=== PATIENT | male | born 1945 | race Caucasian/White ===

== ENCOUNTER 2016-10-15 12:26 | Emergency (ER) | payer OTHER ==
[2016-10-15] MEDS ORDERED: NS 1,000 ML IV ONE (13:06)
--- NOTE | 2016-10-15 13:17 | PROVIDER DOCUMENTATION ---
HPI-Syncope/Dizziness <Elaine Schultz - Last Filed: 10/15/16 14:52> - General Source: patient, family - History of Present Illness-Syncope/Dizzy Timing: reports: improving Position/Activity at time of episode: reports: standing Symptoms prior to episode: reports: lightheaded, nausea/vomiting. denies: headache, visual disturbance, chest pain, racing heart, abdominal pain, back pain, confusion, injury, recent head trauma, rapid heart beat Context: reports: almost passed out Loss of Consciousness: no loss of consciousness Recently Seen Here or By Another Healthcare Provider: No <Liv Knight - Last Filed: 10/15/16 15:03> - General Chief Complaint: Dizziness Stated Complaint: NAUSEA,WEAKNESS,NEAR SYNCOPE Time Seen by Provider: 10/15/16 12:49 Allergies/Adverse Reactions: Patient Allergies Allergy/AdvReac Type Severity Reaction Status Date / Time cephalexin [Cephalexin] Allergy Intermediate RASH Verified 09/19/14 19:47 piperacillin sodium * Allergy Intermediate RASH Verified 09/19/14 19:47 [From Zosyn] tazobactam sodium * Allergy Intermediate RASH Verified 09/19/14 19:47 [From Zosyn] vancomycin Allergy ITCHING Verified 03/28/16 09:42 Home Medications: Home Medication List Medication Instructions Recorded Confirmed Last Taken Type Aspirin 81 mg PO DAILY 04/21/12 10/15/16 10/15/16 07:00 History 81 MG Lisinopril 2.5 mg PO BID 04/21/12 10/15/16 10/15/16 07:00 History 2.5 MG Metoprolol [Lopressor] 12.5 mg PO BID 04/21/12 10/15/16 10/15/16 07:00 History 12.5 MG Tamsulosin [Flomax] 0.4 mg PO DAILY 04/21/12 10/15/16 10/15/16 07:00 History 0.4 MG ATORVAstatin [Lipitor] 40 mg PO DAILY 09/19/14 10/15/16 10/14/16 19:00 History Finasteride 5 mg PO DAILY 09/19/14 10/15/16 10/15/16 07:00 History 5 MG Multivitamins/Minerals [Centrum 1 each PO DAILY 02/09/15 03/07/17 03/07/17 07: 00 History Silver] 1 EACH Rivaroxaban [Xarelto] 20 mg PO DAILY 09/19/14 10/15/16 10/15/16 07:00 History 20 MG Vit C/E/Zn/Coppr/Lutein/Zeaxan 1 each PO BID 03/28/16 03/29/16 10/15/16 07:00 History [Preservision Areds 2 Softgel] Hydrocodone/APAP 10 mg/325 mg 1 each PO Q6H PRN PRN #30 tablet 03/29/16 Unknown Rx [[id number]] - History of Present Illness-Syncope/Dizzy Nature of Presenting Problem: Presents to er with cc of near syncope and dizziness. Pt reports he felt nauseated this am walked to the commode bent down didn't vomit but stood up and his head started spinning and he became weak. Pt reports he then layed down on his bed and became diaphoretic. Reprots then called his and since then all symptoms have resolved. Reports has hx of bradycardia. Denies cp,v,f,mckinley. (Liv Knight) Review of Systems - Adult - REVIEW OF SYSTEMS - ADULT Constitutional: denies: chills, fever, fatique, weight loss Eyes: reports: no symptoms reported Ears, Nose, Mouth & Throat: denies: ear pain, sinus problem, throat pain Cardiovascular: denies: chest pain, irregular heart rate, orthopnea, syncope Respiratory: denies: cough, shortness of breath, wheezing Gastrointestinal: reports: nausea. denies: abdominal pain, diarrhea, difficulty swallowing, frequent heartburn Genitourinary: denies: dysuria, frequent UTI's Musculoskeletal: denies: bone pain, joint pain, joint swelling, muscle aches Integumentary: denies: hives, hair loss, itching, rash Neurological: reports: dizziness/vertigo, other (near syncope). denies: ataxia , headache/migraines, loss of balance, numbness, paresthesia, syncope, tremors Psychiatric: denies: anxiety, anti-depressant use, alcohol/drug dependence Endocrine: reports: excessive sweating. denies: change in skin pigment, heat intolerance, increased thirst, polyuria Hematologic/Lymphatic: reports: no symptoms reported Allergic/Immunologic: reports: no symptoms reported All Other Systems: Reviewed and Negative <Liv Knight - Last Filed: 10/15/16 15:03> Past History - Adult - PAST MEDICAL HISTORY-ADULT Review of Records: reports: Nursing Assessment Review, Medications Reviewed Major Childhood Illnesses: reports: denies history Cardiovascular: reports: denies history Respiratory: reports: asthma Gastrointestinal: reports: other (rectal cancer) Obstetrical/Gynecological: reports: denies history Genitourinary: reports: denies history Musculoskeletal: reports: denies history Neurological: reports: denies history Endocrine/Immune: reports: denies history Other Conditions: reports: denies history - PRIOR SURGERIES/PROCEDURES Surgical/Procedure History: reports: bowel surgery, other (colostomy) - IMMUNIZATION STATUS Childhood Immunizations: See Nurse Assessment Flu Vaccine: See Nurse Assessment - FAMILY HISTORY Family History: reviewed, not pertinent - SOCIAL HISTORY Smoking: cigarettes, less than 1 pack/day Provider spent 3-5 mins advising pt. on dangers of tobacco.: Discussed manners to quit use, and f/u contacts for add'l counseling. Substance Use: none/never <Liv Knight - Last Filed: 10/15/16 15:03> Physical Exam-General - PHYSICAL EXAM-ADULT Initial Vital Signs Reviewed: Yes - CONSTITUTIONAL General Appearance: appears well, alert, no apparent distress - EYES Eyes: PERRL/EOMI - HEAD, EARS, NOSE, MOUTH & THROAT HENMT: normocephalic/atraumatic, moist mucous membranes, normal ENT inspection, TMs normal, pharynx normal - NECK Neck: non-tender, full range of motion, supple, normal inspection - RESPIRATORY Respiratory: chest non-tender, lungs clear, normal breath sounds, no pleuratic chest pain, no respiratory distress, no accessory muscle use - CARDIOVASCULAR Cardiovascular: no edema, no gallop, no JVD, no murmur, bradycardia - GASTROINTESTINAL (ABDOMEN) Abdominal Exam: soft, no organomegaly, no pulsatile mass, other (colostomy bag left quad) - MUSCULOSKELETAL Back Exam: normal inspection, no CVA tenderness, no vertebral tenderness Extremity: normal range of motion, non-tender, normal gait - SKIN Integumentary: normal color, normal turgor, warm/dry - 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 EKG showed sinus jeremy, but he has h/o it and his EKG has no changes compared to old EKG. HR been in high 50s after ED arrival and repeated EKG showed no changes before d/c home.) <Elaine Schultz - Last Filed: 10/15/16 14:52> - EKG 1 Time of EKG reading by physician:: 12:33 EKG Read and Signed by:: Elaine Schultz EKG Interpretation (*Must complete 3 of following elements*): Abnormal ( possible lae) Rate: 50 Rhythm: sinus jeremy [place]: left QRS: LBB 2 Time of EKG reading by physician:: 14:58 EKG Read and Signed by:: Elaine Schultz EKG Interpretation (*Must complete 3 of following elements*): Abnormal Rate: 55 Rhythm: SINUS JEREMY [place]: left QRS: LBB NE Interval: normal ST Wave: normal - XRAY 1 XRAY: Bilateral XRAY Study: Chest Impression: Normal XRAY Interpretation: nad - CT/MRI 1 CT Study: Head Impression: Normal CT Results: no blood no mass no hemm <Liv Knight - Last Filed: 10/15/16 15:03> - PLAN OF CARE/RESULTS Progress/Plan/Lab Results: Orders Category Date Time Status Cardiac Monitoring DIRECTED Care 10/15/16 13:06 Active Finger Stick Blood Sugar (ED) DIRECTED Care 10/15/16 13:06 Active Saline Loc NOW Care 10/15/16 13:06 Active CHEST-PORTABLE [RAD] Stat Exams 10/15/16 13:07 Ordered HEAD W/O CONTRAST [CT] Stat Exams 10/15/16 13:07 Ordered ALCOHOL BLOOD Stat Lab 10/15/16 13:06 Uncollected CBC WITH ELECTRONIC DIFF [HEME] Stat Lab 10/15/16 13:06 Uncollected CK PROFILE [SP CHEM] Stat Lab 10/15/16 13:06 Uncollected COMPREHENSIVE METABOLIC PANEL [CHEM] Stat Lab 10/15/16 13:06 Uncollected PROTIME WITH INR [COAG] Stat Lab 10/15/16 13:06 Uncollected PTT [COAG] Stat Lab 10/15/16 13:06 Uncollected TROPONIN T Stat Lab 10/15/16 13:06 Uncollected URINALYSIS W/POSS RFLX CULT [URINALYSIS] Stat Lab 10/15/16 13:06 Uncollected 0.9% Sodium Chloride Inj [Ns] 1,000 ml Med 10/15/16 13:06 Active IV 250 mls/hr Pulse Oximetry Stat Oth 10/15/16 13:06 Active EKG [EKG] Stat Ther 10/15/16 13:06 Ordered Vital Signs - 24 hr 10/15/16 12:36 Temperature 97.7 F Pulse Rate 53 L Respiratory 16 Rate Blood Pressure 117/54 O2 Sat by Pulse 100 Oximetry Laboratory Tests 10/15/16 10/15/16 10/15/16 13:23 13:23 13:23 WBC 11.15 H RBC 4.12 L Hgb 13.2 L Hct 39.1 L MCV 94.9 MCH 32.0 H MCHC 33.8 RDW Std Deviation 12.7 Plt Count 236 MPV 10.9 H Immature Gran % (Auto) 0.2 Neut % (Auto) 84.1 H Lymph % (Auto) 6.8 L Barren % (Auto) 7.8 Eos % (Auto) 0.8 Baso % (Auto) 0.3 Immature Gran # (Auto) 0.02 Neut # (Auto) 9.38 H Lymph # (Auto) 0.76 L Barren # (Auto) 0.87 H Eos # (Auto) 0.09 Baso # (Auto) 0.03 PT INR PTT (Actin FS) Sodium 141 Potassium 4.8 Chloride 103 Carbon Dioxide 28 Anion Gap 10 BUN 31 H Creatinine 1.1 Estimated GFR/1.73 m2 > 60 BUN/Creatinine Ratio 28 Glucose 109 H Calculated Osmolality 288 Calcium 9.4 Total Bilirubin 0.24 AST 14 ALT 11 Alkaline Phosphatase 92 Creatine Kinase 72 Troponin T Total Protein 6.3 Albumin 3.9 Globulin 2.4 Albumin/Globulin Ratio 1.6 Urine Source Urine Color Urine Turbidity Urine pH Ur Specific [place] Urine Protein Ur Glucose (Stick) Ur Ketones (Stick) Urine Blood Urine Nitrite Urine Bilirubin Urobilinogen Dipstick Urine Leukocytes Urine WBC (Auto) Urine RBC (Auto) U Epithel Cells (Auto) Urine Bacteria (Auto) Plasma/Serum Ethyl Alc 10/15/16 10/15/16 10/15/16 13:23 13:23 14:00 WBC RBC Hgb Hct MCV MCH MCHC RDW Std Deviation Plt Count MPV Immature Gran % (Auto) Neut % (Auto) Lymph % (Auto) Barren % (Auto) Eos % (Auto) Baso % (Auto) Immature Gran # (Auto) Neut # (Auto) Lymph # (Auto) Barren # (Auto) Eos # (Auto) Baso # (Auto) PT 13.7 H INR 1.29 PTT (Actin FS) 34.5 Sodium Potassium Chloride Carbon Dioxide Anion Gap BUN Creatinine Estimated GFR/1.73 m2 BUN/Creatinine Ratio Glucose Calculated Osmolality Calcium Total Bilirubin AST ALT Alkaline Phosphatase Creatine Kinase Troponin T < 0.010 Total Protein Albumin Globulin Albumin/Globulin Ratio Urine Source CLEAN CATCH Urine Color YELLOW Urine Turbidity CLEAR Urine pH 5.5 Ur Specific [place] 1.018 Urine Protein NEGATIVE Ur Glucose (Stick) NEGATIVE Ur Ketones (Stick) NEGATIVE Urine Blood NEGATIVE Urine Nitrite NEGATIVE Urine Bilirubin NEGATIVE Urobilinogen Dipstick NORMAL Urine Leukocytes NEGATIVE Urine WBC (Auto) <10 Urine RBC (Auto) <10 U Epithel Cells (Auto) <10 Urine Bacteria (Auto) NEGATIVE Plasma/Serum Ethyl Alc (Liv Knight) Departure <Jose Schultzeddie X - Last Filed: 10/15/16 14:52> - Departure Time of Disposition Order: 14:33 Certified Medical Emergency: Emergent <Liv Knight - Last Filed: 10/15/16 15:03> - Departure DIAGNOSIS: Near syncope Disposition: HOME 01 Condition: Stable Additional Instructions: ED Follow Up Instructions: You have been treated by a care provider in the Emergency Department. These instructions are being provided to you so you can have an understanding of how to care for yourself upon discharge. Upon discharge from the Emergency Department, you are responsible for making arrangements for follow-up care by a physician of your choice. Take all prescribed medications as directed. Return to the Emergency Department immediately for any new or worsening symptoms. You may call the Physician Referral phone number at [phone] to obtain a list of Physicians who are taking new patients. Referrals: Sendy Knight MD [Primary Care Provider] - Attestation - Scribe Verification/Attestation Scribe:: Liv Knight Acting as Scribe for:: Elaine Schultz Scribe documention review:: This chart was documented by a scribe and accurately reflects the service the provider performed and the decisions made by the provider. <Liv Knight - Last Filed: 10/15/16 15:03> Physician Attestation - Physician Attestation I, the provider, attest to the following statement:: Elaine Schultz Physician documentation Attestation:: This documentation recorded by the scribe accurately reflects the service I personally performed and the decisions made by me. <Liv Knight - Last Filed: 10/15/16 15:03>
[2016-10-15 13:35] LABS: MANUAL DIFF NEEDED? NO
[2016-10-15 13:39] LABS: BASO% 0.3 % (0.0-0.8); EOS# 0.09 X1000 (0.0-0.7); EOS% 0.8 % (0.0-10.0); HEMATOCRIT 39.1 % (42.0-52.0); HEMOGLOBIN 13.2 g/dL (14.0-18.0); IMM GRAN# 0.02 X1000 (0.0-0.04); IMM GRAN% 0.2 % (0.0-0.5); LYMPH# 0.76 X1000 (1.2-3.4); LYMPH% 6.8 % (20.5-51.1); MCHC 33.8 g/dL (33-37); MCV 94.9 FL (81-99); MONO# 0.87 X1000 (0.11-0.59); MONO% 7.8 % (1.7-9.3); MPV 10.9 FL (7.4-10.4); NEUT% 84.1 % (42.2-75.2); PLT 236 X1000 (130-400); RBC 4.12 XMIL (4.7-6.1)
[2016-10-15 13:52] LABS: INR 1.29; PROTIME 13.7 Seconds (9.2-11.7); PTT 34.5 Seconds (22.0-36.0)
[2016-10-15 13:58] LABS: AGAP 10; ALBUMIN 3.9 g/dL (3.5-5.0); ALKALINE PHOSPHATASE 92 U/L (32-122); BUN 31 mg/dL (8-22); CALCIUM 9.4 mg/dL (8.8-10.2); CHLORIDE 103 mmol/L (98-107); CK PROFILE 72 U/L (24-204); COSMO 288; GOT 14 U/L (10-34); GPT 11 U/L (10-44); POTASSIUM 4.8 mmol/L (3.5-5.1); SODIUM 141 mmol/L (136-145); TCO2 28 mmol/L (25-35); TOTAL BILIRUBIN 0.24 mg/dL (0.20-1.00); TOTAL PROTEIN 6.3 g/dL (6.3-8.3)
--- NOTE | 2016-10-15 14:08 | Diag Imaging Result Document ---
PROCEDURE NAME: HEAD W/O CONTRAST - 10/15/2016 CT BRAIN WITHOUT. DOSE REDUCTION PROTOCOL. FINDINGS: No parenchymal hemorrhage. No epidural or subdural hematoma. No subarachnoid hemorrhage. No hydrocephalus. No mass identified on this noncontrasted exam. No sinus opacification. IMPRESSION: No hemorrhage. Negative brain CT without contrast.
--- NOTE | 2016-10-15 14:19 | Diag Imaging Result Document ---
PROCEDURE NAME: CHEST-PORTABLE - 10/15/2016 PORTABLE UPRIGHT AP CHEST: COMPARISON: 03/18/2016. FINDINGS: The lungs are well expanded. The heart is not enlarged. The vessels are not distended. No pneumonia. No pleural effusions identified. IMPRESSION: Negative chest.
[2016-10-15 14:27] LABS: URINE CULTURE NEEDED? NO; URINE MICRO REVIEW NEEDED? NO; URINE SOURCE CLEAN CATCH
[2016-10-15 14:30] LABS: BILIRUBIN URINE NEGATIVE (NEGATIVE); BLOOD URINE NEGATIVE (NEGATIVE); COLOR YELLOW; GLUCOSE URINE NEGATIVE (NEGATIVE); LEUKOCYTES URINE NEGATIVE (NEGATIVE); NITRITE URINE NEGATIVE (NEGATIVE); PH URINE 5.5; PROTEIN URINE NEGATIVE (NEGATIVE); SP GRAVITY URINE 1.018; TURBIDITY URINE CLEAR (CLEAR); UROBILINOGEN URINE NORMAL (NORMAL)
[2016-10-15 14:31] LABS: UR EPITHELIAL CELLS <10 /HPF (<10); URINE BACTERIA NEGATIVE /HPF; URINE RBC <10 /HPF (<10); URINE WBC <10 /HPF (<10)
[2016-10-15 15:19] VITALS: BP 141/54
--- NOTE | 2016-10-15 15:40 | EKG Report ---
Test Performed on : 10/15/2016 12:33:59 PM Test Reason : AMS Blood Pressure : / mmHG Vent. Rate : 050 BPM Atrial Rate : 050 BPM P-R Int : 186 ms QRS Dur : 156 ms QT Int : 476 ms P-R-T Axes : 076 -47 173 degrees QTc Int : 433 ms Sinus bradycardia. Possible Left atrial enlargement Left axis deviation Left bundle branch block Abnormal ECG When compared with ECG of 28-MAR-2016 10:00, No significant change was found Unconfirmed Result
--- NOTE | 2016-10-16 05:42 | EKG Report ---
Test Performed on : 10/15/2016 2:58:43 PM Test Reason : No Order in [email or web address] Blood Pressure : / mmHG Vent. Rate : 055 BPM Atrial Rate : 055 BPM P-R Int : 190 ms QRS Dur : 154 ms QT Int : 466 ms P-R-T Axes : 060 -58 127 degrees QTc Int : 445 ms Sinus bradycardia. Left axis deviation Left bundle branch block Abnormal ECG No previous ECGs available Unconfirmed Result
== END 2016-10-15 15:23 | disposition home or self-care (01) ==
LOC: ED 12:26
DX: R55 Syncope and collapse (principal); R94.31 Abnormal electrocardiogram [ECG] [EKG]; R42 Dizziness and giddiness; R11.0 Nausea; R53.1 Weakness; R61 Generalized hyperhidrosis; R00.1 Bradycardia, unspecified; F17.210 Nicotine dependence, cigarettes, uncomplicated; Z79.899 Other long term (current) drug therapy; Z79.01 Long term (current) use of anticoagulants; Z79.82 Long term (current) use of aspirin; Z71.6 Tobacco abuse counseling; Z85.048 Personal history of other malignant neoplasm of rectum, rectosigmoid junction, and anus; Z93.3 Colostomy status
CPT/HCPCS: 70450; 71010; 80053; 81001; 82550; 82948; 84484; 85025; 85610; 85730; 93005; G0480; J7030; 80320

== ENCOUNTER 2018-10-22 08:54 | Inpatient (IN) ==
[2018-10-22] MEDS ORDERED: NS 1,000 ML IV ONE ×2 (09:27→11:20)
[2018-10-22 09:34] LABS: BASO# 0.02 X1000 (0.0-0.2); BASO% 0.2 % (0.0-0.8); HEMATOCRIT 45.1 % (42.0-52.0); HEMOGLOBIN 15.2 g/dL (14.0-18.0); IMM GRAN# 0.03 X1000 (0.0-0.04); IMM GRAN% 0.2 % (0.0-0.5); LYMPH# 1.17 X1000 (1.2-3.4); LYMPH% 8.9 % (20.5-51.1); MCH 31.5 PG (27-31); MCHC 33.7 g/dL (33-37); MCV 93.4 FL (81-99); MONO# 1.25 X1000 (0.11-0.59); MONO% 9.5 % (1.7-9.3); NEUT# 10.67 X1000 (1.4-6.5); NEUT% 81.2 % (42.2-75.2); PLT 198 X1000 (130-400); RBC 4.83 XMIL (4.7-6.1); RDW 13.9 % (11.5-14.5); WBC 13.14 X1000 (4.8-10.8)
[2018-10-22 09:59] LABS: ALB/GLOB RATIO 1.4; ALBUMIN 4.3 g/dL (3.5-5.0); CALCIUM 9.8 mg/dL (8.8-10.2); CREATININE 1.9 mg/dL (0.7-1.2); TOTAL BILIRUBIN 0.49 mg/dL (0.20-1.00); TOTAL PROTEIN 7.4 g/dL (6.3-8.3)
--- NOTE | 2018-10-22 10:21 | PROVIDER DOCUMENTATION ---
HPI-Chest Pain - General Chief Complaint: N/V/D Stated Complaint: POST OP COMPLAINT Time Seen by Provider: 10/22/18 10:15 Source: patient, family (INTRAVASC AO VALVE REPLACEMENT [facility] [address] GROSS/AJ. EPISODE A FIB YESTERDAY AT PRIOR TO D/C BUT CONVERTED TO SINUS, GIVEN 1ST DOSE OF AMIOD 200MG AND SENT HOME. REPORT TUMMY ACHE YESTERDAY, THEN NAUSEA/VOMITING, CHILLS WEAKNESS DIZZINESS , UPPER ABD PAIN BUT NO CHEST PAIN THIS MORINGING. HAS BEEN ON XARELTO AND TOOK 1ST DOSE PLAVIX THIS AM. TOOK DOSE AMIOD 200 THIS AM.) Allergies/Adverse Reactions: Patient Allergies Allergy/AdvReac Type Severity Reaction Status Date / Time cephalexin [Cephalexin] Allergy Intermediate RASH Verified 03/25/18 03:54 piperacillin sodium * Allergy Intermediate RASH Verified 03/25/18 03:54 [From Zosyn] tazobactam sodium * Allergy Intermediate RASH Verified 03/25/18 03:54 [From Zosyn] vancomycin Allergy ITCHING Verified 03/25/18 03:54 Home Medications: Home Medication List Medication Instructions Recorded Confirmed Last Taken Type Aspirin 81 mg PO QHS 04/21/12 03/25/18 02/03/18 20:00 History Lisinopril 2.5 mg PO BID 04/21/12 03/25/18 02/04/18 07:00 History Tamsulosin [Flomax] 0.4 mg PO DAILY 04/21/12 03/25/18 02/03/18 18:30 History ATORVAstatin [Lipitor] 40 mg PO QHS 09/19/14 03/25/18 02/03/18 20:00 History Finasteride 5 mg PO QHS 09/19/14 03/25/18 02/03/18 20:00 History Multivitamins/Minerals [Centrum 1 each PO DAILY 09/19/14 03/25/18 02/04/18 07:00 History Silver] Rivaroxaban [Xarelto] 20 mg PO DAILY 09/19/14 03/25/18 02/04/18 07:00 History Rabeprazole [Aciphex] 20 mg PO DAILY 10/28/17 03/25/18 02/04/18 07:00 History Vit C/E/Zn/Coppr/Lutein/Zeaxan 1 each PO BID 10/28/17 03/25/18 02/04/18 07:00 History [Preservision Areds 2 Softgel] Amiodarone [Cordarone] 200 mg PO DAILY 02/05/18 03/25/18 02/04/18 07:00 History Docusate Sodium [Colace] 100 mg PO BID #60 cap 03/27/18 Unknown Rx Review of Systems - Adult - REVIEW OF SYSTEMS - ADULT Constitutional: reports: no symptoms reported. denies: chills Eyes: reports: no symptoms reported Ears, Nose, Mouth & Throat: reports: no symptoms reported Cardiovascular: reports: no symptoms reported Respiratory: reports: no symptoms reported Gastrointestinal: reports: no symptoms reported Genitourinary: reports: no symptoms reported Musculoskeletal: reports: no symptoms reported Integumentary: reports: no symptoms reported Neurological: reports: no symptoms reported Psychiatric: reports: no symptoms reported Endocrine: reports: no symptoms reported Hematologic/Lymphatic: reports: no symptoms reported Allergic/Immunologic: reports: no symptoms reported All Other Systems: Reviewed and Negative Past History - Adult - PAST MEDICAL HISTORY-ADULT Review of Records: reports: Old Records Reviewed, Nursing Assessment Review, Medications Reviewed, Social history reviewed & non-contributory. Major Childhood Illnesses: reports: denies history Cardiovascular: reports: palpitations Respiratory: reports: asthma Gastrointestinal: reports: obstruction, other (rectal cancer) Obstetrical/Gynecological: reports: denies history Genitourinary: reports: denies history Musculoskeletal: reports: denies history Neurological: reports: denies history Endocrine/Immune: reports: denies history Other Conditions: reports: denies history - PRIOR SURGERIES/PROCEDURES Surgical/Procedure History: reports: bowel surgery, other (colostomy) - IMMUNIZATION STATUS Childhood Immunizations: See Nurse Assessment Flu Vaccine: See Nurse Assessment - FAMILY HISTORY Family History: reviewed, not pertinent Physical Exam-General - PHYSICAL EXAM-ADULT Initial Vital Signs Reviewed: Yes - CONSTITUTIONAL General Appearance: mild distress - EYES Eyes: PERRL/EOMI - HEAD, EARS, NOSE, MOUTH & THROAT HENMT: moist mucous membranes - NECK Neck: full range of motion, supple - RESPIRATORY Respiratory: lungs clear, normal breath sounds, no pleuratic chest pain - CARDIOVASCULAR Cardiovascular: tachycardia, irregularly irregular - GASTROINTESTINAL (ABDOMEN) Abdominal Exam: normal bowel sounds, non tender, soft - MUSCULOSKELETAL Extremity: normal range of motion, non-tender, normal gait, normal inspection - SKIN Integumentary: normal color, normal turgor, warm/dry - 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, grossly normal, no motor/sensory deficits - PSYCHIATRIC Psych/Mental Status: normal mood/affect, normal thought content, normal thought process, oriented x 3 - HEART Score HEART Score: History: Moderately Suspicious HEART Score: ECG: Non-Specific Repolarization Disturbance/LBBB/PM HEART Score: Age: > or = 65 Years HEART Score: Risk Factors for Atherosclerotic Disease: 1 or 2 Risk Factors HEART Score: Troponin: < or = Normal Limit Total HEART Score:: 5 Progress - PLAN OF CARE/RESULTS Progress/Plan/Lab Results: Vital Signs - 8 hr 10/22/18 11:00 10/22/18 11:02 10/22/18 11:10 Pulse Rate 47 L 48 L 52 L Respiratory Rate 10 L 11 L 15 Blood Pressure 120/60 O2 Sat by Pulse Oximetry 98 97 98 10/22/18 11:17 10/22/18 11:20 10/22/18 11:30 Pulse Rate 50 L 50 L 49 L Respiratory Rate 9 L 11 L 17 Blood Pressure 123/63 O2 Sat by Pulse Oximetry 98 98 96 10/22/18 11:32 10/22/18 11:40 10/22/18 11:47 Pulse Rate 54 L 50 L 51 L Respiratory Rate 18 9 L 13 Blood Pressure 96/65 132/60 O2 Sat by Pulse Oximetry 98 97 96 10/22/18 11:50 10/22/18 12:00 10/22/18 12:03 Pulse Rate 49 L 58 L 54 L Respiratory Rate 13 18 15 Blood Pressure 125/71 O2 Sat by Pulse Oximetry 98 98 97 10/22/18 12:10 10/22/18 12:17 10/22/18 12:20 Pulse Rate 52 L 56 L 49 L Respiratory Rate 17 22 10 L Blood Pressure 131/64 O2 Sat by Pulse Oximetry 97 97 97 10/22/18 12:30 10/22/18 12:32 10/22/18 12:40 Pulse Rate 55 L 49 L 49 L Respiratory Rate 16 21 12 Blood Pressure 122/63 O2 Sat by Pulse Oximetry 98 97 97 10/22/18 09:02 Influenza Screen - Final Nasopharyngeal Laboratory Results - last 24 hr 10/22/18 10/22/18 09:10 09:10 WBC 13.14 H RBC 4.83 Hgb 15.2 Hct 45.1 MCV 93.4 MCH 31.5 H MCHC 33.7 RDW Std Deviation 13.9 Plt Count 198 MPV 11.0 H Immature Gran % (Auto) 0.2 Neut % (Auto) 81.2 H Lymph % (Auto) 8.9 L [place] % (Auto) 9.5 H Eos % (Auto) 0.0 Baso % (Auto) 0.2 Immature Gran # (Auto) 0.03 Neut # (Auto) 10.67 H Lymph # (Auto) 1.17 L [place] # (Auto) 1.25 H Eos # (Auto) 0.00 Baso # (Auto) 0.02 Sodium 135 L Potassium 5.0 Chloride 101 Carbon Dioxide 24 L Anion Gap 10 BUN 39 H Creatinine 1.9 H Estimated GFR/1.73 m2 35 BUN/Creatinine Ratio 21 Glucose 128 H Calculated Osmolality 281 Calcium 9.8 Total Bilirubin 0.49 AST 24 ALT 18 Alkaline Phosphatase 99 Total Protein 7.4 Albumin 4.3 Globulin 3.1 Albumin/Globulin Ratio 1.4 Amylase 33 Lipase 15 Orders Category Date Time Status Admit - [facility] Routine AdmDCTranf 10/22/18 15:30 Active Activity - Bed Rest with BRP ORDERED Care 10/22/18 15:30 Active Apply Mechanical Device [QM] ORDERED Care 10/22/18 15:30 Active Currently Rec Anticoagulation [QM] ROUTINE Care 10/22/18 15:30 Active DVT/PE Risk Assess/Protocol [QM] ORDERED Care 10/22/18 15:30 Active ED: Orthostatic Vital Signs (E DIRECTED Care 10/22/18 09:27 Completed IV [Saline Loc] NOW Care 10/22/18 09:27 Completed Intake and Output-Strict ORDERED Care 10/22/18 15:30 Active Nursing- Assist w/ IS as order ORDERED Care 10/22/18 15:30 Active Update & Confirm Home Medicati ROUTINE Care 10/22/18 15:30 Active Vital Signs Order Q 4-HR ASSESS Care 10/22/18 15:30 Active Z-Document. for Tele Applied ORDERED Care 10/22/18 15:30 Completed MD [Physician/Provider Consults] Routine Cons 10/22/18 10:27 Ordered Heart Healthy Diet Diet 10/22/18 11:27 Active KUB ABDOMEN [RAD] Routine Exams 10/22/18 15:30 Completed cxr [CHEST-PORTABLE] [RAD] Stat Exams 10/22/18 10:56 Completed AMYLASE [CHEM] Stat Lab 10/22/18 09:10 Completed BASIC METABOLIC PANEL [CHEM] Routine Lab 10/23/18 06:00 Ordered CBC WITH DIFF [HEME] Routine Lab 10/23/18 06:00 Uncollected CBC WITH ELECTRONIC DIFF [HEME] Stat Lab 10/22/18 09:10 Completed COMPREHENSIVE METABOLIC PANEL [CHEM] Stat Lab 10/22/18 09:10 Completed FOLATE Routine Lab 10/22/18 15:30 Uncollected FREE T4 Routine Lab 10/23/18 06:00 Uncollected INFLUENZA SCREEN A/B Stat Lab 10/22/18 09:02 Completed LIPASE [CHEM] Stat Lab 10/22/18 09:10 Completed MAGNESIUM [CHEM] Routine Lab 10/23/18 06:00 Ordered OVA AND PARASITE W/TRICHROME [STOOL] Stat Lab 10/22/18 12:21 Uncollected Stool [C DIFF TOXIN] [STOOL] Routine Lab 10/22/18 11:21 Uncollected Stool [OCCULT BLOOD SCREENING] [STOOL] Routine Lab 10/22/18 11:21 Uncollected TSH Routine Lab 10/23/18 06:00 Uncollected VITAMIN B12 Routine Lab 10/22/18 15:30 Uncollected WBC STOOL [STOOL] Stat Lab 10/22/18 12:21 Uncollected 0.9% Sodium Chloride Inj [Ns] 1,000 ml Med 10/22/18 11:20 Active IV 100 mls/hr 0.9% Sodium Chloride Inj [Ns] 1,000 ml Med 10/22/18 09:27 Discontinued IV 999 mls/hr ATORVAstatin [Lipitor] Med 10/22/18 21:00 Active 40 mg PO QHS Acetaminophen [Tylenol] Med 10/22/18 15:30 Active 650 mg PO Q6H PRN PRN Amiodarone [Cordarone] Med 10/22/18 11:30 Active 200 mg PO DAILY Aspirin Med 10/22/18 11:30 Discontinued 81 mg PO DAILY Clopidogrel [Plavix] Med 10/22/18 12:00 Active 75 mg PO DAILY Ondansetron [Zofran] Med 10/22/18 15:30 Active 4 mg IV Q4H PRN PRN Rivaroxaban [Xarelto] Med 10/22/18 17:00 Active 20 mg PO WSUPPER Incentive Spirometer Routine Oth 10/22/18 15:30 Active Oxygen Device Routine Oth 10/22/18 15:30 Active Telemetry [OM.EQ] Routine Oth 10/22/18 15:30 Active ECHO COMPL W/Contrast Definity Routine Ther 10/22/18 11:29 Completed EKG [EKG] DAILY Ther 10/23/18 06:00 Ordered EKG [EKG] DAILY Ther 10/24/18 06:00 Ordered EKG [EKG] Stat Ther 10/22/18 09:27 Draft Transfer/Admit Order [TRANSFER] Routine Transfer 10/22/18 11:54 Completed Result Diagrams: 10/22/18 09:10 10/22/18 09:10 - REASSESSMENT Reassessment #1 Time Reassessed: 10:19 Status: improving (PRESENTED IN AFIB AT 102-115/MIN AND CONCERTED TO SINUS BRADYARDIA I WATCHED THE MONITOR AT 0943. IMMEDIATELY FELT MUCH BETTER. MOST SXS RESOLVED.PAGING CARDIOLOGY. BERGER REACHED IN HIS CLINIC BUT INSTRUCTED ME TO CALL DR HI, PAGING DR HI.) - CONSULTS/PCP/HOSPITALIST Notification #1 *Consult/PCP/Hospitalist*: DR HI, NUCLEAR TECHNICIAN Time Discussed: 10:24 Consult Disposition: Will see in ED #2 Consult: EVANGELINA: ADMIT TO DR PLEITEZ Time Discussed: 11:55 Consult Disposition: Admit Departure - Departure Date of Disposition Decision: 10/22/18 Time of Disposition Decision: 10:30 DIAGNOSIS: Chest pain, Atrial fibrillation with RVR Disposition: ADMITTED INPATIENT 09 Certified Medical Emergency: Emergent Condition: Fair - Critical Care Note This patient required my direct & personal management of CC.: Yes Total Time (mins): 35 Critical Care Statement: This patient required my direct personal management to treat or rule out processes, the absence of which, could potentiallly result in sudden, clinically significant life or limb threatening deterioration. Attestation - Physician/ NUNO Attestation The physician spent face to face time with patient:: Yes Advanced Practice Provider documentation review:: Supervising physician onsite and consulted in the evaluation and care of this patient. The physician did have a face to face encounter with the patient.
--- NOTE | 2018-10-22 10:32 | EKG Report ---
Test Performed on : 10/22/2018 09:43:51 AM Test Reason : post valve replacement Blood Pressure : / mmHG Vent. Rate : 053 BPM Atrial Rate : 053 BPM P-R Int : 174 ms QRS Dur : 168 ms QT Int : 478 ms P-R-T Axes : 071 -54 136 degrees QTc Int : 448 ms Sinus bradycardia. with premature atrial complexes. Biatrial enlargement Left axis deviation Left bundle branch block Abnormal ECG When compared with ECG of 25-MAR-2018 10:06, premature atrial complexes. are now present Unconfirmed Result
--- NOTE | 2018-10-22 10:36 | ED EKG INTERP ---
This chart was entered by Carmencita Rodríguez Scribe, acting as scribe for Keon Knight MD. EKG Interpretation - EKG Time of EKG reading by physician:: 09:34 EKG Read and Signed by:: Keon Knight EKG Interpretation (*Must complete 3 of following elements*): Abnormal Rate: 98 Rhythm: undetermined rhythm [place]: left (deviation) QRS: LBB AK Interval: normal ST Wave: normal Prior EKG Comparison: changes noted (changed to sinus jeremy rhythm with dr at bedside) - EKG # 2 Time of EKG reading by physician:: 09:43 EKG Read and Signed by:: Keon Knight EKG Interpretation (*Must complete 3 of following elements*): Abnormal Rate: 53 Rhythm: sinus bradycardia with pac [place]: left (deviation) QRS: LBB, other (biatrial enlargement) AK Interval: normal ST Wave: normal Prior EKG Comparison: changes noted Attestation - Physician/ NUNO Attestation Patient care was provided by Advanced Practice Provider:: No The physician spent face to face time with patient:: Yes Advanced Practice Provider documentation review:: Supervising physician onsite and consulted in the evaluation and care of this patient. The physician did have a face to face encounter with the patient. This chart was documented by the indicated scribe, (Carmencita Rodríguez Scribe) and accurately reflects the services I performed and decisions made by me, Keon Knight MD, as attested by the provider's signature.
[2018-10-22] MEDS ORDERED: ASPIRIN PO SCH (11:30)
[2018-10-22] MEDS: CORDARONE PO SCH (11:30)
--- NOTE | 2018-10-22 11:34 | Diag Imaging Result Doc PS360 ---
CHEST-PORTABLE - 10/22/2018 INDICATION: dyspnea, afib COMPARISON: 03/26/2018 FINDINGS: The lungs are normally expanded and clear. Heart size and mediastinal contours are normal. No pneumothorax or pleural effusion. IMPRESSION: Negative exam. Electronically signed by Henrry Nieto 10/22/2018 11:31 AM
[2018-10-22] MEDS: PLAVIX PO SCH (12:00)
--- NOTE | 2018-10-22 12:01 | CARDIOLOGY CONSULTATION ---
DATE: 10/22/2018 HISTORY OF PRESENT ILLNESS: Mr. David Carr is a 73-year-old, gentleman who underwent TAVR on this Friday. Was in the hospital. Prior to discharge, he was noted to be having abnormal heart rhythm. Was started on amiodarone. Subsequently discharged home. After he went home, the patient had noticed, last night, severe abdominal squeezing sensation and discomfort, had diarrhea. He has a colostomy bag. There was no blood but it was diarrhea. He felt dizzy. Came to the emergency room here. At the emergency room, his rhythm revealed atrial flutter. His is back in sinus rhythm, intermittently into atrial flutter and normal sinus rhythm. He denies any chest pain. His main symptoms were a queasy sensation in his abdomen with some nausea as well. REVIEW OF SYSTEM: A 14 point review of systems was done. GI System: As above. In addition, there is no hematemesis or melena. Central Nervous System: No focal weakness to suggest a CVA or TIA. Genitourinary System: There is no dysuria or hematuria. Respiratory System: There is no history of cough, expectoration, or hemoptysis. There is no history of fevers or chills. PAST MEDICAL HISTORY: 1. Status post TAVR at [facility] on 10/20/2018. 2. History of paroxysmal atrial fibrillation. 3. Atrial flutter. 4. Anticoagulation therapy. 5. Hyperlipidemia. 6. Carotid bruit. 7. Renal insufficiency. 8. Colon surgery with end-colostomy secondary to colorectal surgery. 9. In the past, he has had small bowel obstruction. HOME MEDICATIONS: Include amiodarone 200 mg daily, Xarelto 20 mg a day, finasteride 5 mg, atorvastatin 40, Flomax 0.4 mg, aspirin 81 mg a day, Centrum Silver, Colace. ALLERGIES: Allergic to vancomycin, Zosyn, cephalexin. SOCIAL HISTORY: The patient does not smoke. He dips tobacco. There is no history of alcohol abuse. PHYSICAL EXAMINATION: Vital Signs: Blood pressure 129/61, heart rate 48. Cardiovascular: First and second heart sounds were heard. There was no S3 gallop. Respiratory System: Normal air entry. There were no crepitations or rhonchi. Abdomen: Soft, nontender. There was no guarding or rigidity. Bowel sounds were heard. He has a colostomy bag. Central Nervous System: Alert and he was moving all 4 extremities. Extremities: Examination of extremities revealed no pedal edema. LABORATORY EXAMINATION: Sodium 135, potassium 5.0, BUN 39, creatinine 1.9. On 04/30/2018, his creatinine in the recent past was between 1.2 and 1.4. Hematology: WBC 13.14, hemoglobin 15.2, hematocrit 45, platelet count of 198,000. Chest x-ray is pending. ASSESSMENT AND PLAN: Mr. David Carr is a 73-year-old, gentleman who underwent transcatheter aortic valve replacement on 10/20/2018. He has a history of atrial flutter, paroxysmal atrial fibrillation, hyperlipidemia, colorectal cancer, status post colostomy. Underwent transcatheter aortic valve replacement recently. Went home and subsequently had a queasy sensation in his stomach associated with significant diarrhea. There was no blood noted in his stool. He felt weak. Came to the emergency room. RECOMMENDATIONS: 1. The patient has had significant diarrhea. Was recently hospitalized. We will make sure there is no Clostridium difficile. 2. We will give him IV fluids. He received a bag of IV fluids. We will hydrate him at 100 mL an hour. 3. His creatinine is slightly worse. It is probably secondary to dye as well as dehydration. We will check his BMP and CBC as well. 4. As far as his TAVR is concerned, that was successful. I will touch base with Dr. Miller, pharmacy technician instructor at [place]. 5. As far as heart rhythm is concerned, he has a left bundle branch block, has paroxysmal atrial flutter, and has had atrial fibrillation as well. When he came in, he was noted to be in atrial flutter. He is currently in sinus rhythm. We will refer him to electrophysiology for consideration for ablation as an outpatient. 6. As far as anticoagulation therapy, he is on Xarelto. I have not made any changes. There is no bleeding issues. We will continue with aspirin as well. We will get an echocardiogram. cc: Abdoulaye Suarez MD
--- NOTE | 2018-10-22 13:08 | HISTORY AND PHYSICAL ---
HISTORY OF PRESENT ILLNESS: Mr. Gerber is followed by Dr. Sendy Knight, presented with diarrhea and nausea and when he presented, found to be in atrial fibrillation with rapid ventricular rate. He recently has undergone trans aortic valvular replacement of aortic valve for aortic stenosis in [place] and had just gotten home. This is a 73-year-old white male. PAST MEDICAL HISTORY: Includes. 1. Abdominoperineal resection or resection. I think he has history of rectal cancer. This was in 2011. 2. Status post laparoscopic cholecystectomy by Dr. Carvalho. 3. Status post appendectomy several years ago. 4. I think he had back surgery on a herniated disk. 5. No other medical problems other than his aortic stenosis with recent transaortic valvular replacements in [place]. He reports that he had nausea when he left the hospital. He thinks it was related to the food because it upset his stomach and last night, the night before admission he had diarrhea loose stools, nausea, diaphoresis and palpitations as the stated when he came. He has an atrial fibrillation with rapid ventricular rate. He does not does not report any chest pain or any particular dyspnea or pleuritic pain or cough or fever or chills. No blood in his stool. 6. 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 7. Atrial fibrillation. 8. Benign prostatic hypertrophy for which he is on Flomax. He has not had any voiding issues recently. Dr. Suarez has evaluated. ALLERGIES: Allergic to multiple medications, cephalexin, Piperacillin, and vancomycin all which gave him a rash. He did report that I think he had cephalexin last time when he had he had back surgery and they gave him some Benadryl. He seemed to do fine. SOCIAL HISTORY: He is and was there at the bedside. Smokes half a pack of cigarettes a day since he was age 19. No alcohol or drug use. FAMILY HISTORY: Pertinent for congestive heart failure in his mother. Father of a CVA. REVIEW OF SYSTEMS: In general no weight gain or loss, no fever chills reported. No change in visual or hearing acuity. No history of thyroid issues. No neck pain or complaints of upper respiratory can drainage or congestion or adenopathy.Respiratory: No increased work of breathing or dyspnea. Cardiovascular: No chest pain or tachy palpitation. Did appreciate his heart was out of rhythm this morning. GI/: No gross hematuria or dysuria. No hematochezia, but he had loose stools yesterday evening and through the night and nausea. Musculoskeletal/Neurologic: No focal complaints. Endocrinologic/Hematologic: No significant history. PHYSICAL EXAMINATION: In the emergency room temp 97.8 degrees, pulse 48, respirations 12, blood pressure 129/61. HEENT: Pupils are equal and round. No sinus tenderness. NECK: No distended neck veins. No cervical supraclavicular adenopathy. No thyromegaly. Neck was supple. LUNGS: Clear anterolateral. CARDIOVASCULAR: Regular rhythm and rate without murmur or S3. Monitor shows sinus rhythm. Initially we had atrial fibrillation and then he converted to sinus rhythm/ sinus bradycardia. ABDOMEN: Soft, nondistended. He was eating lunch when we came in to examine him. PULSES: His carotid radial femoral and pedal pulses 2+ and symmetrical. EXTREMITIES: No pedal edema. SKIN: No sign of skin rashes or lesions in the oral nasal mucosa. LAB: White count 13,140, hematocrit 45, platelet count 198,000 sodium 135, potassium 5.0, chloride 101, BUN 39, creatinine 1.9, calcium 9.8. AST was 24, ALT was 18, alkaline phosphatase was 99, albumin 4.3. Chest x-ray was a negative exam. No sign of infiltrates. No pneumothorax or pleural effusion. Mediastinal contours were normal. ASSESSMENT AND PLAN: 1. Nausea and diarrhea. It sounds like he may have had a viral syndrome or even irritated stomach. He seems to have improved. He is eating. Appetite is good. Nausea is resolved. 2. New onset atrial fibrillation. Recent valve replacement aortic valve with transaortic valve replacement at [place]. Hemodynamics look good. His valve sounds good. No sign of pulmonary venous hypertension. No sign of inadequate perfusion. 3. He has had a history of right central retinal artery obstruction. 4. His current medications Lipitor 40 mg at bedtime, Cordarone 200 mg a day, aspirin 81 mg a day, Colace 100 mg b.i.d., finasteride 5 mg at bedtime, lisinopril 2.5 mg b.i.d., multivitamin 1 a day, AcipHex 20 mg daily, Xarelto 20 mg a day and Flomax 0.4 mg a day. 5. So based on his labs, I am guessing he was being treated for atrial fibrillation before. 6. We are going to admit. I believe in the emergency room they have given him a dose of amiodarone 200 mg and then a fluid bolus and normal saline run at 100 mL an hour. He is on Xarelto 20 mg a day, Lipitor 40 mg at bedtime. Cardiology is following and I think he is on a healthy heart diet. We will check his T4, TSH, B12, and folate. We will go ahead and check an a.m. cortisol as well as electrolytes and CBC looked good. Note he does appear to have some azotemia. I am suspecting that is prerenal from the nausea. His creatinine back in March 2018 was 1.0 and in April, 1.2. So, I think he does have a little bit of acute kidney injury. I suspect that will improve with fluids. We will check his CBC and his basic metabolic profile and magnesium in the morning. cc: Chan Thornton MD MTDD
[2018-10-22] MEDS ORDERED: TYLENOL PO PRN (15:30)
[2018-10-22] MEDS ORDERED: ZOFRAN IV PRN (15:30)
--- NOTE | 2018-10-22 16:16 | Diag Imaging Result Doc PS360 ---
KUB ABDOMEN - 10/22/2018 INDICATION: abd pain s/p TAVR COMPARISON: 03/26/2018 FINDINGS: There is significant gaseous distention of some loops of small bowel in the right side of the abdomen. These measure up to 4.3 cm. There is an ostomy in the left lower quadrant. No visible free air. There are cholecystectomy clips. There is some gas throughout the colon. IMPRESSION: Abnormally distended small bowel loops in the right side of the abdomen concerning for partial small bowel obstruction or ileus. Electronically signed by Henrry Nieto 10/22/2018 4:14 PM
[2018-10-22] MEDS ORDERED: XARELTO PO SCH (17:00)
[2018-10-22] MEDS ORDERED: LIPITOR PO SCH (21:00)
[2018-10-23 05:55] LABS: BASO# 0.02 X1000 (0.0-0.2); BASO% 0.2 % (0.0-0.8); EOS# 0.06 X1000 (0.0-0.7); EOS% 0.7 % (0.0-10.0); HEMATOCRIT 36.7 % (42.0-52.0); HEMOGLOBIN 12.2 g/dL (14.0-18.0); LYMPH# 1.28 X1000 (1.2-3.4); LYMPH% 15.7 % (20.5-51.1); MCH 31.4 PG (27-31); MCHC 33.2 g/dL (33-37); MCV 94.3 FL (81-99); MONO# 1.06 X1000 (0.11-0.59); MPV 11.4 FL (7.4-10.4); NEUT# 5.72 X1000 (1.4-6.5); NEUT% 70.4 % (42.2-75.2); PLT 126 X1000 (130-400); RBC 3.89 XMIL (4.7-6.1); RDW 13.6 % (11.5-14.5); WBC 8.14 X1000 (4.8-10.8)
[2018-10-23 06:07] LABS: AGAP 9; BUN 32 mg/dL (8-22); CHLORIDE 107 mmol/L (98-107); COSMO 282; CREATININE 1.1 mg/dL (0.7-1.2); GLUCOSE 87 mg/dL (70-104); POTASSIUM 4.1 mmol/L (3.5-5.1); SODIUM 138 mmol/L (136-145); TCO2 22 mmol/L (25-35)
[2018-10-23 06:08] LABS: CALCIUM 7.8 mg/dL (8.8-10.2); ESTIMATED GFR > 60; MAGNESIUM 2.1 mg/dL (1.5-2.7)
[2018-10-23 06:33] LABS: FREE T4 1.73 ng/dL (0.93-1.70); TSH 0.39 uIUmL (0.27-4.20)
--- NOTE | 2018-10-23 07:56 | EKG Report ---
Test Performed on : 10/23/2018 07:12:06 AM Test Reason : aflutter Blood Pressure : / mmHG Vent. Rate : 048 BPM Atrial Rate : 048 BPM P-R Int : 172 ms QRS Dur : 172 ms QT Int : 522 ms P-R-T Axes : 061 -51 148 degrees QTc Int : 466 ms Sinus bradycardia. Possible Left atrial enlargement Left axis deviation Left bundle branch block Abnormal ECG When compared with ECG of 22-OCT-2018 09:43, (Unconfirmed) premature atrial complexes. are no longer present Unconfirmed Result
--- NOTE | 2018-10-23 08:24 | ECHO REPORT ---
ORDER DATE: 10/22/2018 INTERPRETING PHYSICIAN: Jewel Euceda MD REQUESTING PHYSICIAN: Hospitalist. INDICATION: Arrhythmia, atrial flutter, status post TAVR. M-MODE MEASUREMENTS: Left ventricle end diastole: 4.9 cm. Left ventricle end systole: 4.1 cm. Ventricular wall thickness: 1.5 cm. Posterior wall: 1.3 cm. Left atrium: 3.7 cm. Aortic diameter: 3.1 cm. SUMMARY OF 2-DIMENSIONAL IMAGIN. The left ventricular chamber is significantly enlarged. The global left ventricular systolic function is [id number] impaired. Global ejection fraction appears to be somewhat in the range of 40% to 45%. 2. There is atypical contractility of the interventricular septum. This probably relates to either a bundle branch block or pacemaker activity. 3. Definity was injected to optimize visualization of the endocardium. 4. The mitral valve shows some calcification of the annulus. Color flow mapping indicates a moderate degree of regurgitation. 5. The right ventricle is mildly enlarged. 6. The right atrium appears to be normal. 7. The left atrium is mildly enlarged. 8. The aortic valve shows the presence of a prosthetic valve with a mild degree of regurgitation. Maximum gradient across this valve is 25 mmHg and mean gradient is 14 mmHg. That is probably consistent with a normally functioning valve. 9. The tricuspid valve shows a mild degree of regurgitation. 10.Pulmonary pressure is estimated at 31 mmHg. 11.The pulmonic valve is unremarkable. 12.The pulsed wave Doppler of mitral inflow shows reversal of the E and the A ratio. The ratio is 0.7. 13.Tissue Doppler of septal and lateral mitral annulus averages 4 cm indicating impaired left ventricular relaxation. 14.There is no pericardial effusion and no sign of thrombus. SUMMARY: In summary, this study shows: 1. Significant enlargement of the left ventricular chamber with moderately decreased contractility with ejection fraction somewhere in the range of 40% to 45%. 2. There is atypical contractility of the interventricular septum probably reflecting pacemaker activity or a bundle branch block. 3. Moderate degree of mitral regurgitation. 4. Impaired left ventricular relaxation. 5. Zbik-bg-[id number] degree of aortic regurgitation with a normal gradient across the prosthetic valve of 14 mmHg. 6. No pericardial effusion and no sign of thrombus. Clinical correlation is recommended. cc: MD Jackelin Winchester PA
[2018-10-23] MEDS: PLAVIX PO SCH (09:09)
--- NOTE | 2018-10-23 09:21 | PROGRESS NOTE ---
DATE: 10/23/2018 SUBJECTIVE: Mr. Carr was admitted yesterday, on 10/22/2018. His doctor is Dr. Sendy Knight. He presented with diarrhea and nausea, found to be in atrial fibrillation with rapid ventricular rate. Recently under went transaortic valvular replacement of aortic valve for aortic stenosis in [place], and he had just recently gotten home and was found with nausea and vomiting and atrial fibrillation with rapid rate. He feels like he is back in sinus rhythm. He is comfortable. It appears he is in sinus bradycardia. PHYSICAL EXAMINATION: Vital Signs: Today temperature 98.3 degrees, pulse 50, respirations 14, blood pressure 135/61. HEENT and Neck: Pupils are equal. No distended neck veins. Lungs: Clear in all lung aguilar. Cardiovascular: Regular rhythm and rate without murmur or S3. Abdomen: Soft. Skin: Warm and dry. DIAGNOSTIC DATA: Urine output was 500 mL. Abdominal x-ray, abnormally distended small bowel loops in the right side concerning for partial small bowel obstruction, but his abdomen is soft this morning. EKG this morning, undetermined rhythm, left axis deviation, and there was some question if there were some flutter waves in there. That was an EKG done at 8 o'clock. At 6 o'clock this morning he appeared to be in sinus bradycardia. He has a left bundle-branch block. ASSESSMENT AND PLAN: 1. The nausea and diarrhea seem to have resolved. 2. He has a history of a right retinal artery infarct. 3. He is on Lipitor. He is on Cordarone 200 mg a day, aspirin 81 mg a day, Colace. He is on lisinopril 2.5 mg twice daily. 4. So, we will watch him on the monitor. Discussed with Cardiology. His most recent EKG is suggestion of some atrial flutter. cc: Chan Thornton MD
[2018-10-23 11:23] VITALS: BP 153/54
[2018-10-23] MEDS: CORDARONE PO SCH (12:27)
--- NOTE | 2018-10-23 15:10 | DISCHARGE SUMMARY ---
ADMISSION DATE: 10/22/2018 DISCHARGE DATE: 10/23/2018 HISTORY: He is followed by Dr. Sendy Knight. Mr. Carr presented with diarrhea and nausea. He had just left [facility]. He was found to have atrial fibrillation and rapid ventricular rate when he got here, but apparently had atrial fib at [facility]. He just finished an aortic trans aorta valvular replacement of his aortic valve for aortic stenosis. He was doing well but then got nausea and diaphoretic and several bouts of throwing up, felt very weak and lightheaded. PAST MEDICAL HISTORY: 1. Abdominoperineal resection, history of rectal cancer in 2011 with colon resection. 2. Status post laparoscopic cholecystectomy per Dr. Carvalho. 3. Status post appendectomy several years ago. 4. Had back surgery for herniated disk. 5. History of aortic stenosis, severe, underwent transaortic valvular replacement in [place] and was doing well coming home when he developed this nausea. 6. 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 7. Atrial fibrillation, fairly new onset. 8. History of prostatic hypertrophy, for which he is on Flomax. HOSPITAL COURSE: Seen in the emergency room. Cardiology saw him as well. He was given some fluids. He went back into sinus rhythm, actually sinus bradycardia. No further nausea. Remained in sinus bradycardia through the night. We continued his current medications. He is on Cordarone 200 mg a day, aspirin 81 mg a day, Colace 100 mg b.i.d., lisinopril 2.5 b.i.d. History of gastroesophageal reflux and he was on AcipHex. We will continue that. He felt good the following morning. Cardiology felt like he was okay to go home. Had an echocardiogram done on arrival. Significant enlargement of left ventricular chamber with moderately decreased contractility, ejection fraction somewhere around 40%-45%. There was atypical contractility in the interventricular septum, probably reflecting pacemaker activity or bundle branch block. Moderate degree of mitral regurgitation. Impaired left ventricular relaxation, mild to moderate degree of aortic regurgitation. Normal gradient across the prosthetic valve. No pericardial effusion. The patient felt good. We did check his stool for Clostridium difficile. He was having diarrhea, but the main issue was nausea, and he was given some IV fluids. Creatinine was slightly worse and we felt he would benefit from fluids and indeed he did. His TAVR was successful. Dr. Miller is his government services professional. We will let him go home and he can follow up with Cardiology in [place] next week. He has an appointment already. DISCHARGE MEDICATIONS: 1. Lipitor 40 mg a day. 2. Cordarone 200 mg a day. 3. Aspirin 81 mg a day. 4. Plavix 75 mg a day. 5. Colace 200 mg at nighttime. 6. Finasteride 5 mg at bedtime. 7. Metoprolol succinate 25 mg in the morning. 8. Multivitamins 1 a day. 9. Xarelto 20 mg a day. 10. Flomax 0.4 mg a day. cc: Chan Thornton MD
== END 2018-10-23 15:23 | disposition home or self-care (01) | DRG 309 ==
LOC: ED 08:54 → 3S 12:42
PROVIDERS: ATTEND Emergency Medicine
CPT/HCPCS: 71010; 71045; 74000; 74018; 80048; 80053; 82150; 82607; 82746; 83690; 83735; 84439; 84443; 85025; 87275; 87276; 87804; 93005; 93306; 94761; 94799; 96360; 96361; 99285; A9270; C8929; J7030; Q9957

== ENCOUNTER 2018-12-04 03:41 | Inpatient (IN) ==
[2018-12-04] MEDS ORDERED: BENTYL IM ONE (03:58)
[2018-12-04] MEDS ORDERED: ZOFRAN IV ONE (03:58)
[2018-12-04] MEDS ORDERED: MORPHINE IV ONE ×2 (03:58→06:25)
[2018-12-04] MEDS ORDERED: NS 1,000 ML IV ONE ×2 (03:58→05:31)
--- NOTE | 2018-12-04 04:27 | PROVIDER DOCUMENTATION ---
HPI-General Adult - General Chief Complaint: Abdominal Pain Stated Complaint: ABD PAIN/VOMITING Time Seen by Provider: 12/04/18 03:45 Source: patient Allergies/Adverse Reactions: Patient Allergies Allergy/AdvReac Type Severity Reaction Status Date / Time cephalexin [Cephalexin] Allergy Intermediate RASH Verified 03/25/18 03:54 piperacillin sodium * Allergy Intermediate RASH Verified 03/25/18 03:54 [From Zosyn] tazobactam sodium * Allergy Intermediate RASH Verified 03/25/18 03:54 [From Zosyn] vancomycin Allergy ITCHING Verified 03/25/18 03:54 Home Medications: Home Medication List Medication Instructions Recorded Confirmed Last Taken Type Aspirin 81 mg PO QHS 04/21/12 10/22/18 10/19/18 21:00 History Tamsulosin [Flomax] 0.4 mg PO DAILY 04/21/12 10/22/18 10/21/18 21:00 History ATORVAstatin [Lipitor] 40 mg PO QHS 09/19/14 10/22/18 10/21/18 21:00 History Finasteride 5 mg PO QHS 09/19/14 10/22/18 10/21/18 21:00 History Multivitamins/Minerals [Centrum 1 each PO DAILY 09/19/14 10/22/18 10/22/18 09:00 History Silver] Rivaroxaban [Xarelto] 20 mg PO DAILY 09/19/14 10/22/18 10/21/18 09:00 History Vit C/E/Zn/Coppr/Lutein/Zeaxan 1 each PO BID 10/28/17 10/22/18 10/22/18 09:00 History [Preservision Areds 2 Softgel] Amiodarone [Cordarone] 200 mg PO DAILY 02/05/18 10/22/18 10/22/18 09:00 History Clopidogrel Bisulfate [Clopidogrel] 75 mg PO QAM 10/22/18 10/22/18 10/22/18 09:00 History Docusate Sodium [Colace] 200 mg PO QPM 10/22/18 10/22/18 10/21/18 21:00 History Metoprolol Succinate 25 mg PO QAM 10/22/18 10/22/18 10/22/18 09:00 History - History of Present Illness -Gen Adult Nature of Presenting Problems: 73 y/o M presents to the ED complaining of abdominal pain. States since yesterday his ostomy has been putting less and less out and last night he began to have marked lower abdominal pain. Soon after began to have nausea and vomiting. Took a colace and then began to have diarrhea but pain has not improved. No fever, no blood in emesis or stool. Review of Systems - Adult - REVIEW OF SYSTEMS - ADULT Constitutional: reports: no symptoms reported Eyes: reports: no symptoms reported Ears, Nose, Mouth & Throat: reports: no symptoms reported Cardiovascular: reports: no symptoms reported Respiratory: reports: no symptoms reported Gastrointestinal: reports: abdominal pain, diarrhea, nausea, vomiting Genitourinary: reports: no symptoms reported Musculoskeletal: reports: no symptoms reported Integumentary: reports: no symptoms reported Neurological: reports: no symptoms reported Psychiatric: reports: no symptoms reported Endocrine: reports: no symptoms reported Hematologic/Lymphatic: reports: no symptoms reported Allergic/Immunologic: reports: no symptoms reported All Other Systems: Reviewed and Negative Past History - Adult - PAST MEDICAL HISTORY-ADULT Review of Records: reports: Old Records Reviewed, Nursing Assessment Review, Medications Reviewed, Social history reviewed & non-contributory. Major Childhood Illnesses: reports: denies history Cardiovascular: reports: palpitations Respiratory: reports: asthma Gastrointestinal: reports: obstruction, other (rectal cancer) Obstetrical/Gynecological: reports: denies history Genitourinary: reports: denies history Musculoskeletal: reports: denies history Neurological: reports: denies history Endocrine/Immune: reports: denies history Other Conditions: reports: denies history - PRIOR SURGERIES/PROCEDURES Surgical/Procedure History: reports: bowel surgery, other (colostomy) - IMMUNIZATION STATUS Childhood Immunizations: See Nurse Assessment Flu Vaccine: See Nurse Assessment - FAMILY HISTORY Family History: reviewed, not pertinent Physical Exam-General - PHYSICAL EXAM-ADULT Initial Vital Signs Reviewed: Yes - CONSTITUTIONAL General Appearance: appears well, alert, no apparent distress - EYES Eyes: PERRL/EOMI, pink conjunctivae - HEAD, EARS, NOSE, MOUTH & THROAT HENMT: normocephalic/atraumatic, moist mucous membranes, normal ENT inspection - NECK Neck: non-tender, full range of motion, supple - RESPIRATORY Respiratory: chest non-tender, lungs clear, normal breath sounds - CARDIOVASCULAR Cardiovascular: normal peripheral pulses, regular rate, rhythm, no edema, no JVD - GASTROINTESTINAL (ABDOMEN) Abdominal Exam: soft, tenderness (moderate BL LQ, ostomy in LLQ) - MUSCULOSKELETAL Back Exam: normal inspection, no CVA tenderness, no vertebral tenderness Extremity: normal range of motion, non-tender - SKIN Integumentary: normal color, normal turgor, warm/dry - NEUROLOGIC Neurologic: grossly normal, no motor/sensory deficits - PSYCHIATRIC Psych/Mental Status: normal mood/affect, normal thought content, normal thought process, oriented x 3 Progress - PLAN OF CARE/RESULTS Progress/Plan/Lab Results: Vital Signs - 8 hr 12/04/18 03:50 Temperature 98.1 F Pulse Rate 132 H Respiratory Rate 20 Blood Pressure 113/85 O2 Sat by Pulse Oximetry 98 Orders Category Date Time Status IV Insertion ORDERED Care 12/04/18 03:58 Active Nursing- Obtain EKG ONCE Care 12/04/18 03:[address] ABD/PELVIS W/IV CONT ONLY [CT] Stat Exams 12/04/18 03:58 Ordered CBC WITH DIFF [HEME] Stat Lab 12/04/18 03:58 Uncollected COMPREHENSIVE METABOLIC PANEL [CHEM] Stat Lab 12/04/18 03:58 Uncollected LIPASE [CHEM] Stat Lab 12/04/18 03:58 Uncollected 0.9% Sodium Chloride Inj [Ns] 1,000 ml Med 12/04/18 03:58 Active IV 999 mls/hr Dicyclomine [Bentyl] Med 12/04/18 03:58 Discontinued 20 mg IM NOW ONE Morphine Med 12/04/18 03:58 Discontinued 4 mg IV NOW ONE Ondansetron [Zofran] Med 12/04/18 03:58 Discontinued 4 mg IV NOW ONE EKG [EKG] Stat Ther 12/04/18 03:58 Ordered abdominal pain with emesis and decreased ostomy output, will further evaluate for causes including but not limited to obstruction, diverticulitis, colitis, gastoenteritis, dehydration, uti, Result Diagrams: 12/04/18 04:19 12/04/18 04:19 - REASSESSMENT Reassessment #1 Status: other (Continued pain and nausea, CT concering for SBO due to hernia vs volvulus, discussed case with Dr. Farr, General surgeon orthodontist who reviewed the images and feels that pt should have an NG placed and should be admitted to the hisptialist, will follow case. Discussed case with Dr. Laguerre, Hospitalist, who will see and admit pt) - EKG 1 Time of EKG reading by physician:: 04:05 EKG Read and Signed by:: Humaira Jose EKG Interpretation (*Must complete 3 of following elements*): Abnormal (Atrial fibrillation with RVR, rate 129, no acute st changes, LBBB) - CT/MRI 1 CT Study: Abdomen, Pelvis Impression: Abnormal (per radiologist read: "high grade mechanical obstruction t ransition point in right lower quadrant, the swirl like appearance of bowel and mesentary at this site could be due to focal volvus or internal hernia.") Departure - Departure Date of Disposition Decision: 12/04/18 Time of Disposition Decision: 06:50 DIAGNOSIS: Small bowel obstruction Disposition: ADMITTED INPATIENT 09 Certified Medical Emergency: Emergent Condition: Fair Referrals and Follow-Ups: Sendy Knight MD [Primary Care Provider] - - Critical Care Note This patient required my direct & personal management of CC.: No Attestation - Physician/ NUNO Attestation Patient care was provided by Advanced Practice Provider:: No The physician spent face to face time with patient:: Yes Advanced Practice Provider documentation review:: Supervising physician onsite and consulted in the evaluation and care of this patient. The physician did have a face to face encounter with the patient.
[2018-12-04 05:12] LABS: BASO# 0.03 X1000 (0.0-0.2); BASO% 0.2 % (0.0-0.8); EOS# 0.01 X1000 (0.0-0.7); EOS% 0.1 % (0.0-10.0); HEMATOCRIT 45.1 % (42.0-52.0); HEMOGLOBIN 15.7 g/dL (14.0-18.0); IMM GRAN# 0.06 X1000 (0.0-0.04); IMM GRAN% 0.5 % (0.0-0.5); LYMPH# 0.79 X1000 (1.2-3.4); LYMPH% 6.5 % (20.5-51.1); MCH 32.1 PG (27-31); MCHC 34.8 g/dL (33-37); MCV 92.2 FL (81-99); MONO# 0.65 X1000 (0.11-0.59); MONO% 5.3 % (1.7-9.3); MPV 10.8 FL (7.4-10.4); NEUT# 10.68 X1000 (1.4-6.5); NEUT% 87.4 % (42.2-75.2); PLT 233 X1000 (130-400); RBC 4.89 XMIL (4.7-6.1); RDW 13.5 % (11.5-14.5); WBC 12.22 X1000 (4.8-10.8)
[2018-12-04 05:28] LABS: ALB/GLOB RATIO 1.4; ALBUMIN 4.3 g/dL (3.5-5.0); CALCIUM 9.6 mg/dL (8.8-10.2); CREATININE 1.9 mg/dL (0.7-1.2); POTASSIUM 4.9 mmol/L (3.5-5.1); TOTAL BILIRUBIN 0.47 mg/dL (0.20-1.00); TOTAL PROTEIN 7.4 g/dL (6.3-8.3)
[2018-12-04] MEDS ORDERED: CARDIZEM IV ONE (06:25)
[2018-12-04] MEDS ORDERED: CARDIZEM ONE (06:29)
[2018-12-04] MEDS ORDERED: MORPHINE ONE (06:29)
--- NOTE | 2018-12-04 07:02 | EKG Report ---
Test Performed on : 12/04/2018 04:03:01 AM Test Reason : tachycardia Blood Pressure : / mmHG Vent. Rate : 129 BPM Atrial Rate : 150 BPM P-R Int : 000 ms QRS Dur : 168 ms QT Int : 368 ms P-R-T Axes : 000 -62 123 degrees QTc Int : 539 ms Atrial fibrillation. with rapid ventricular response. Left axis deviation Left bundle branch block Abnormal ECG When compared with ECG of 23-OCT-2018 07:12, Atrial fibrillation. has replaced Sinus rhythm. Vent. rate has increased BY 81 BPM Unconfirmed Result
[2018-12-04] MEDS ORDERED: ATIVAN IV ONE (07:32)
--- NOTE | 2018-12-04 07:37 | Diag Imaging Result Doc PS360 ---
EXAM: CT ABD/PELVIS W/IV CONT ONLY INDICATION: abdominal pain and emesis TECHNIQUE: This exam was performed using automated exposure control, adjustment of mA or kV according to patient size, and/or use of iterative reconstruction technique. COMPARISON: 03/25/2018 FINDINGS: There is mild subsegmental atelectasis at the lung bases. There is cardiomegaly. There has been a prior cholecystectomy. There are a few simple cysts at the anterosuperior aspect of the liver. The spleen, pancreas, and adrenal glands are unremarkable. A few simple left renal cysts are noted. The kidneys are unremarkable, otherwise. The urinary bladder is only slightly distended and is essentially unremarkable, otherwise. There are multiple distended loops of small bowel with air-fluid levels consistent with a high-grade mechanical obstruction. The transition point appears to be in the right lower quadrant just inferior to the level of the umbilicus where there is mesenteric swirling. Consider an adhesion versus internal hernia. The distal ileum and colon are decompressed. There has been a prior partial colectomy. There is a stable and patent colostomy on the left. There is presacral soft tissue density that is unchanged and likely represents scarring from prior surgery and/or radiotherapy. There is a small amount of fluid between the loops of distended small bowel. No free abdominal gas is appreciated. The remainder of the GI tract is essentially unremarkable. There is aortoiliac atherosclerotic calcification. There are degenerative changes involving the spine and hips. IMPRESSION: 1.High-grade mechanical small bowel obstruction with the transition point in the right lower quadrant where there is mesenteric swirling. Consider an obstructing adhesion or internal hernia. 2.Other incidental/nonacute findings detailed above. Electronically signed by Ebenezer Delgado 12/04/2018 7:34 AM
[2018-12-04] MEDS ORDERED: PHENERGAN IV PRN (07:52)
[2018-12-04] MEDS ORDERED: SODIUM CHLORIDE 0.9% INJ PRN (07:52)
[2018-12-04] MEDS ORDERED: XOPENEX NEB ONE (08:27)
--- NOTE | 2018-12-04 08:53 | Diag Imaging Result Doc PS360 ---
CHEST-2 VIEWS - 12/04/2018 INDICATION: r/o pna/CHF; leukocytosis COMPARISON: 10/22/2018 FINDINGS: There is an NG tube in good position. Stable mild cardiomegaly. Stable apparent aortic valve replacement. Pulmonary vascularity is normal. No infiltrates or edema. IMPRESSION: No acute disease. Electronically signed by Henrry Nieto 12/04/2018 8:50 AM
--- NOTE | 2018-12-04 08:59 | EKG Report ---
Test Performed on : 12/04/2018 08:51:30 AM Test Reason : repeat for afib please Blood Pressure : / mmHG Vent. Rate : 132 BPM Atrial Rate : 132 BPM P-R Int : 128 ms QRS Dur : 168 ms QT Int : 368 ms P-R-T Axes : 000 -65 137 degrees QTc Int : 545 ms Sinus tachycardia. Left axis deviation Left bundle branch block Abnormal ECG When compared with ECG of 04-DEC-2018 04:03, (Unconfirmed) Sinus rhythm. has replaced Atrial fibrillation. Confirmed by Devang VILLEDA, Bridger ([id number]) on 12/07/2018 9:10:27 AM
[2018-12-04] MEDS: CARDIZEM 125 MG/D5W 125 MG/125 ML IVPB IV SCH (09:20)
[2018-12-04] MEDS: NS 1,000 ML IV SCH ×2 (09:20→21:59)
--- NOTE | 2018-12-04 09:26 | GENERAL SURGERY CONSULTATION ---
DATE: 12/04/2018 REQUESTING PHYSICIAN: Emergency Department. REASON FOR CONSULTATION: Consult is concerning bowel obstruction. HISTORY OF PRESENT ILLNESS: A 73-year-old gentleman who is presenting now with a bowel obstruction. He has got a strong personal history of bowel obstructions. He has been here in the hospital several times. He did have abdominoperineal resection several years in the past and has had continued bowel obstructions. They have all been treated successfully nonoperatively. He is coming now with a several day history of decreased output. He had a CT scan in the emergency department that showed bowel obstruction. I was asked to weigh an opinion. He is doing okay. He is about to have an NG tube placed. PAST MEDICAL HISTORY: Includes 1. Aortic stenosis. 2. History of CVA. 3. Atrial fibrillation. 4. BPH. PAST SURGICAL HISTORY: Includes 1. Abdominoperineal resection. 2. Cholecystectomy. 3. Appendectomy. 4. Back surgery. 5. Transaortic valvular replacement. FAMILY HISTORY: Reviewed with patient, noncontributory. HOME MEDICATIONS: 1. Aspirin. 2. Flomax. 3. Lipitor. 4. Finasteride. 5. Centrum. 6. Xarelto. 7. Multivitamin. 8. Cordarone. 9. Plavix. 10. Colace. 11. Metoprolol. ALLERGIES: 1. Cephalosporins. 2. Penicillin. 3. Vancomycin. SOCIAL HISTORY: Lives at home. REVIEW OF SYSTEMS: A full 10 point review of systems obtained, negative as specified in HPI physical. PHYSICAL EXAMINATION: Vital Signs: The patient is currently afebrile. He does have a tachycardia in the 130s, but it is irregular. General: No acute distress. HEENT: Normocephalic, atraumatic. Pupils equal, round, reactive to light. Mucous membranes moist. Oropharynx benign. Neck: Supple. Trachea midline. Cardiovascular: Irregularly irregular. Lungs: Grossly clear. Abdomen: Soft, minimally distended. Ostomy in left lower quadrant. No real abdominal tenderness. Extremities: Moves all extremities. Neurologic: Grossly intact. Skin: No signs of jaundice. Vascular: All extremities perfused. LABORATORY DATA: White blood cell count is 12, hematocrit is normal, platelet count normal. BUN 28, creatinine 1.9. Remainder of labs reviewed. CT scan independently reviewed and radiology report reviewed and noted above. ASSESSMENT AND PLAN: A 73-year-old gentleman with multiple medical comorbidities, now with bowel obstruction. 1. Bowel obstruction. At this time, he has had recurrent bowel obstructions. We will try to treat him nonoperatively. He is on Xarelto so any kind of operation needs to be emergent. We will try to put an NG tube down and try to decompress him and see how he does. He is willing to go this route. He wants to try to avoid surgery. 2. Multiple medical comorbidities to be addressed by the hospitalist. cc: Andrew Farr MD
[2018-12-04 09:54] LABS: HEMOGLOBIN A1C 5.1 % (4.8-6.0)
[2018-12-04] MEDS ORDERED: XOPENEX NEB INH SCH (10:00)
[2018-12-04] MEDS ORDERED: ATROVENT NEB INH SCH (10:00)
[2018-12-04 10:40] LABS: TSH 0.45 uIUmL (0.27-4.20)
[2018-12-04 10:46] LABS: FREE T4 1.92 ng/dL (0.93-1.70)
--- NOTE | 2018-12-04 11:49 | EKG Report ---
Test Performed on : 12/04/2018 11:33:32 AM Test Reason : monitor change Blood Pressure : / mmHG Vent. Rate : 082 BPM Atrial Rate : 271 BPM P-R Int : 000 ms QRS Dur : 164 ms QT Int : 422 ms P-R-T Axes : 255 -50 125 degrees QTc Int : 493 ms Atrial flutter. with variable AV block. Left axis deviation Left bundle branch block Abnormal ECG When compared with ECG of 04-DEC-2018 08:51, (Unconfirmed) Atrial flutter. has replaced Sinus rhythm. Vent. rate has decreased BY 50 BPM Confirmed by Devang VILLEDA, Brigder ([id number]) on 12/07/2018 9:11:21 AM
--- NOTE | 2018-12-04 11:51 | HISTORY AND PHYSICAL ---
PRIMARY CARE PROVIDER: Dr. Sendy Knight. PRIMARY WOOD PRODUCTS MANUFACTURER: Kris Leal MD. CHIEF COMPLAINT: Abdominal pain, nausea, vomiting. HISTORY OF PRESENT ILLNESS: Mr. David Carr is a 73-year-old male with a medical history of rectal cancer and colostomy in 2011 that has had a hernia there since then with recurrent small bowel obstructions and occasional constipation now presents with complaints of abdominal pain, nausea, and vomiting. States around 6 p.m. yesterday he ate a grilled cheese sandwich, started developing nausea and vomiting with pain to the right lower quadrant mid abdominal area around 10 p.m., had an excessive amount of stool in the colostomy at 2 a.m., changed it, now has not had very much volume at all. He also presented with atrial fibrillation with RVR that converted to sinus tachycardia, rate 130. He had his beta-arianna stopped in the past due to heart rate in the 40s. He is still taking his amiodarone. He is on Plavix in the morning for his transaortic valve replacement, which he is suppose to be on for 6 months and that was performed in October of 2018, and he takes his Xarelto at night for atrial fibrillation. He will be transferred to the [facility] as he is going to be started on a Cardizem drip to help control his heart rate. He will receive IV fluids as he is n.p.o. He has an NG tube placed. Dr. Farr saw him today already with the recommendations to try and let this resolve on its own and will admit to the [facility] for that. PAST MEDICAL HISTORY: 1. Atrial fibrillation that is chronic. I believe there is talk and plan to see Dr. Verma on Friday for a defibrillator in order to be able to get him off the amiodarone. 2. Aortic stenosis with TAVR, transaortic valve replacement. 3. Rectal cancer with colostomy, 2011, has had a hernia since 2011 as well. 4. 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 5. BPH. 6. CKD stage 3. 7. Recurrent small bowel obstructions with occasional constipation. PAST SURGICAL HISTORY: 1. Colostomy, 2011. 2. TAVR, 10/20/[address] Miller in [place], is suppose to be on Plavix for 6 months. 3. Laparoscopic cholecystectomy. 4. Appendectomy. 5. Back surgery due to herniated disk. 6. Incision and drainage of perineal abscess with debridement of skin and subcutaneous tissue. 7. Chemotherapy port placed and removed. SOCIAL HISTORY: Less than 1 pack per day since the age of 19. Denies alcohol or illicit drug use. Lives at home with his . FAMILY HISTORY: Mother positive for congestive heart failure, father positive for stroke. ALLERGIES: Cephalexin, piperacillin, sodium, tazobactam, essentially Zosyn and vancomycin. HOME MEDICATIONS: Have not been verified, but speaking to him at the bedside, he says his beta- arianna was stopped due to heart rate in the 40s. He claims he is still taking his amiodarone but is undergoing evaluation for defibrillator in order to stop that. He takes Plavix in the mornings due to his recent transaortic valve replacement, and he also takes Xarelto in the evenings for his atrial fibrillation history. Other listed medications that may or may not be accurate as they are not updated is aspirin, finasteride, Lipitor, multivitamin, Colace, Flomax. REVIEW OF SYSTEMS: A 14-point review of systems are complete and all were negative except for those mentioned above in HPI. He denies any shortness of breath, chest pain, fever or chills. Denies dizziness, lightheadedness. PHYSICAL EXAMINATION: VITAL SIGNS: Temperature 98.1, heart rate 133, respiratory rate 15, blood pressure 110/76, O2 saturation 96% on room air. GENERAL: Mr. David Carr is a 73-year-old male. He is in no acute distress. He is able to answer questions appropriately. HEENT: Atraumatic, normocephalic. Pupils equal, round, and reactive to light. Extraocular movements intact. Mucous membranes are moist. NECK: Trachea midline. CARDIOVASCULAR: S1, S2, tachycardic rate, rhythm. No rubs, gallops, or murmurs. No lower extremity edema, +2 dorsalis and radial pulses. Negative JVD or carotid bruits. PULMONARY: Clear to auscultate, bilateral breath sounds. No accessory muscle use or work of breathing noted. GASTROINTESTINAL: Soft, hyperactive bowel sounds. He is tender in the right lower quadrant to midline lower abdomen. Hernia noted around the left lower quadrant colostomy site. No signs of symptoms of infection. EXTREMITIES: Moves all extremities equally with full range of motion. NEUROLOGIC: A and O x3, follows commands. Sensory is intact. SKIN: Warm, dry, intact. LABORATORY DATA: White blood cells 12,000, hemoglobin 15, hematocrit 45, platelet count 233. Sodium 140, potassium 4.9, BUN 28, creatinine is 1.9, glucose 153, calcium 9.6, bilirubin 0.47, AST 20, ALT 13, lipase 21, albumin 4.3. IMAGING: Abdominal and pelvic CT: High-grade mechanical small bowel obstruction with the transition point in the right lower quadrant where there is mesenteric swirling, consider obstructing adhesion or internal hernia. Chest x-ray: No acute disease. First EKG shows atrial fibrillation, irregular, rate was 129, QTc 539. Then, there is a repeat EKG where it is sinus tachycardia, rate was 132, regular, with a QTc of 545. ASSESSMENT AND PLAN: 1. High-grade small bowel obstruction. Dr. Farr has seen the patient. We are trying to decrease the risk for having to have surgery, holding anticoagulation except for deep venous thrombosis prophylaxis heparin. N.p.o., IV fluids, IV Protonix. NG tube to low wall suction intermittent. 2. Atrial fibrillation with rapid ventricular response with chronic atrial fibrillation. Most recent EKG shows sinus tachycardia but heart rate is still in the 130s. He will started on a Cardizem drip. Discussion between Dr. Euceda and Dr. Baird about anticoagulation and treatment, who recommended to continue the Cardizem drip, to hold the Xarelto and the Plavix, and to do renal dosed heparin, and will transfer to [facility] for that. He is suppose to see Dr. Verma on Friday for discussion of a defibrillator so that maybe he can get off the amiodarone. Currently, the amiodarone is being held. 3. Aortic stenosis history with transaortic valve replacement. Is suppose to be on Plavix for 6 months. He just had the procedure performed on 10/20/[address] Miller in [place]. Currently will just be on deep venous thrombosis prophylaxis heparin. 4. Benign prostatic hypertrophy but currently n.p.o. If he needs a Andino catheter, we can place that, currently he does not have one. 5. Acute kidney injury on chronic kidney disease stage 3. He has received 2 L of fluid. Will continue IV fluids, normal saline at 75 an hour and repeat numbers in the morning. 6. Tobacco abuse. Cessation discussed. He smokes less than 1 pack per day since the age of 19. He has no wishes to quit. 7. Abdominal pain secondary to the obstruction. He can have low-dose IV morphine as needed. 8. History of a stroke that affected his right eye. He has visual deficits from that. No new changes. 9. Deep venous thrombosis prophylaxis heparin 5000 units subcutaneously twice a day that is renally dosed. Dictated by RUBY Guzman for Pepe Hernandez MD Patient seen and examined by me face to face, all the laboratory, images and vitals signs were reviewed, the patient presented to the emergency department with abdominal pain, CT scan showed small bowel obstruction, also this patient has a history of transaortic valve replacement and atrial fibrillation, in the emergency department he was found to be on a fib with RVR, we placed this patient on Cardizem drip, but the rate was still elevated, so we decided to consult Cardiology, we decided to stop his treatment with Plavix and Xarelto for possible surgery, his last BM was the day before admission, on my exam his abdomen was soft but tender mostly at the lower abdomen, decreased bowel sounds, he has an ostomy with no stools, will be admitted to [facility] with telemetry, I agree with the MANAGER MEDIA RELATIONS's assessment and plan, Pepe Dorman MD. cc: RUBY Guzman MD [facility]
[2018-12-04] MEDS ORDERED: LANOXIN IV ONE ×2 (12:32→14:30)
[2018-12-04 12:34] LABS: URINE SOURCE CLEAN CATCH
[2018-12-04 12:37] LABS: BILIRUBIN URINE NEGATIVE (NEGATIVE); BLOOD URINE NEGATIVE (NEGATIVE); COLOR YELLOW; GLUCOSE URINE NEGATIVE (NEGATIVE); KETONE URINE TRACE mg/dL (NEGATIVE); LEUKOCYTES URINE NEGATIVE (NEGATIVE); NITRITE URINE NEGATIVE (NEGATIVE); PROTEIN URINE TRACE mg/dL (NEGATIVE); TURBIDITY URINE CLEAR (CLEAR); UROBILINOGEN URINE NORMAL (NORMAL)
[2018-12-04 12:38] LABS: UR EPITHELIAL CELLS <10 /HPF (<10); URINE BACTERIA NEGATIVE /HPF; URINE RBC <10 /HPF (<10); URINE WBC <10 /HPF (<10)
[2018-12-04 12:52] LABS: MAGNESIUM 2.2 mg/dL (1.5-2.7); PHOSPHORUS 4.2 mg/dL (2.7-4.5)
[2018-12-04 12:56] LABS: ALB/GLOB RATIO 1.5; ALBUMIN 3.9 g/dL (3.5-5.0); CALCIUM 8.4 mg/dL (8.8-10.2); CREATININE 1.5 mg/dL (0.7-1.2); POTASSIUM 5.1 mmol/L (3.5-5.1); TOTAL BILIRUBIN 0.58 mg/dL (0.20-1.00); TOTAL PROTEIN 6.5 g/dL (6.3-8.3)
[2018-12-04 13:00] LABS: SP GRAVITY URINE 1.015
[2018-12-04] MEDS ORDERED: NEO-SYNEPHRINE 50 MG in NS 250 ML IV SCH (13:45)
--- NOTE | 2018-12-04 14:55 | EKG Report ---
Test Performed on : 12/04/2018 2:28:21 PM Test Reason : check rhythm Blood Pressure : / mmHG Vent. Rate : 067 BPM Atrial Rate : 268 BPM P-R Int : 000 ms QRS Dur : 164 ms QT Int : 426 ms P-R-T Axes : 269 -50 125 degrees QTc Int : 450 ms Atrial flutter. with variable AV block. Left axis deviation Left bundle branch block Abnormal ECG When compared with ECG of 04-DEC-2018 14:27, (Unconfirmed) QT has shortened Confirmed by Devang VILLEDA, Bridger ([id number]) on 12/07/2018 9:12:25 AM
[2018-12-04] MEDS: LOPRESSOR 10 MG in NS 50 ML IV SCH ×2 (15:03→19:59)
--- NOTE | 2018-12-04 15:54 | CARDIOLOGY CONSULTATION ---
DATE: 12/04/2018 CONSULTATION REQUESTED BY: Hospitalist service. REASON: Atrial fibrillation with rapid response. PRIMARY PRINTING BINDERY ASSISTANT: Dr. Kris Leal. PRIMARY SERVICE: Sendy Knight in [place]. HISTORY: Mr. Carr was doing well as of December 02. On that day, he went to visit with Dr. Leal. He was checked, and everything appeared to be perfectly well. In fact, he stated that for the preceding 3 days he had felt like a teenager. That night, December 02, he started having urinary symptoms which he acknowledges as a symptom of kidney stones and he started taking antibiotics which he normally does in this case. The next day, he went to eat to a [employer] lunch and he ate a pretty solid lunch and later on that afternoon he started having nausea/vomiting and liquid stool. He recognized that has another bout of possible bowel obstruction, and he ended up coming to the emergency room department early this morning at 3:58. They did a CT scan of the abdomen that shows high-grade mechanical small-bowel obstruction with the transition point in the right lower quadrant where there is mesenteric swirling. Consider an obstruction, adhesions or internal hernia. They have consulted Dr. Andrew Farr from Surgery, and he has acknowledged this as a recurrent case of the small-bowel obstruction and has instituted gastric decompression. In the interim, he has been noted to have paroxysmal atrial flutter. The patient states that, unlike previous bouts of arrhythmia which is typically atrial fibrillation, this time he could not feel that his heart was going fast. In the ER, his heart rate has been going as fast as 140 beats per minute, and there was some concern that he could represent ventricular tachycardia; however, the patient does not drop his blood pressure when this happens, and it indeed looks more like atrial flutter with an underlying left bundle branch block. PAST MEDICAL HISTORY: The patient has a past history positive for paroxysmal atrial fibrillation over the course of many years. He was found to have aortic stenosis some time ago, and over the course of the years he has progressed, and about a month ago he underwent transaortic valve replacement in [place]. Subsequently he developed 1 bout of atrial fibrillation paroxysmally. He had to be placed on amiodarone. He has been admitted to the hospital several times with small bowel obstruction, partial. PAST SURGICAL HISTORY: Includes previous resection of cancer of the distal colon with colostomy. He had an abdominoperineal resection. He has had back surgery in the past. He has had cataract extraction, appendectomy, and cholecystectomy. In addition to the aforementioned processes, the patient has had a cardiac catheterization prior to the aortic valve replacement that showed mild disease involving a diagonal branch of the LAD and a marginal branch of the circumflex in the order of 40%. Echocardiogram done recently shows decreased ejection fraction with atypical contractibility of the septum. EF is about 40% to 45%. Pulmonary pressure was 31 mmHg. This is dated 10/22/2018. MEDICATION: His home medications listed at the time of this admission included: Xarelto 20 mg daily metoprolol succinate 25 daily, Plavix 75 mg daily, atorvastatin 40 daily, aspirin 81 daily, Flomax 0.4 mg daily. ALLERGIES: Cephalexin, vancomycin, Zosyn. REVIEW OF SYSTEMS: He has been doing extremely well up until the onset of symptoms. His functional capacity has picked up. Appetite is good. He has not lost any weight. He has no fever or chills. No cardiovascular complaints since his last hospital admission which was October 22, and he was discharged back then on October 23. FAMILY HISTORY: Noncontributory. SOCIAL HISTORY: He is and lives with his . He has grown-up children. 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 He is not a drinker; however, he does smoke half a pack of cigarettes a day since he was 19 years old. PHYSICAL EXAMINATION: Blood pressure right now is 124/62, pulse varies from 95 to 140, respirations 19, temperature 98.1 degrees. He is awake, alert, in no distress. He has an NG tube in place. He is cooperative with the examination. Neck veins are not distended. Chest is clear to auscultation and percussion. Heart sounds are irregularly irregular. He does have a soft systolic aortic murmur. Abdomen is slightly distended and mildly diffusely tender with diminished bowel sounds. Extremities show decreased pulses. Skin shows no rash. On neurological exam, he is awake, alert, oriented x3. Cranial nerves are normal. He does not have any focal muscle weakness. DIAGNOSTIC STUDIES: Blood work today: Sodium 136, potassium 4.1, BUN is 26, creatinine 1.5. Pro BNP 1939. Of note, his TSH is 0.45. His free T4 is high at 1.92; normal is up to 1.70. He is not on thyroid supplements or he is taking amiodarone. His chest x-ray showed no acute disease. EKG shows atrial flutter with left bundle branch block. IMPRESSION: 1. Patient who presents with small-bowel obstruction. This is a recurrent condition for him. 2. Previous colon cancer status post abdominoperineal resection. He has colostomy. 3. Paroxysmal atrial flutter. 4. History of mild coronary artery disease. 5. History of severe aortic stenosis status post transaortic valve replacement.Clinically stable in this area. 6. Mild degree of diastolic dysfunction and also chronic systolic dysfunction with ejection fraction of 40% to 45% . The patient has an abnormal EKG with left bundle branch block. RECOMMENDATION: At this point in time, we have to provide supportive care to try to deal with the bowel obstruction. He did not have any oral medications. We will put him on IV Cardizem and IV digoxin and perhaps tiny doses of beta-blockers if the blood pressure will tolerate it. We will see how he does and will be happy to follow him along. cc: Jewel Euceda MD MTDD
[2018-12-04] MEDS: MORPHINE IV PRN ×2 (19:59→23:31)
[2018-12-04] MEDS: LANOXIN IV SCH (21:56)
[2018-12-04] MEDS: HEPARIN SUBQ SCH (21:56)
[2018-12-04] MEDS: ZOFRAN IV PRN (23:38)
[2018-12-05] MEDS: LANOXIN IV SCH (02:58)
[2018-12-05] MEDS: LOPRESSOR 10 MG in NS 50 ML IV SCH ×4 (02:58→20:09)
[2018-12-05] MEDS: CARDIZEM 125 MG/D5W 125 MG/125 ML IVPB IV SCH (04:15)
[2018-12-05 05:56] LABS: BASO# 0.02 X1000 (0.0-0.2); BASO% 0.2 % (0.0-0.8); HEMATOCRIT 44.9 % (42.0-52.0); HEMOGLOBIN 15.1 g/dL (14.0-18.0); LYMPH# 0.51 X1000 (1.2-3.4); LYMPH% 5.4 % (20.5-51.1); MCH 31.3 PG (27-31); MCHC 33.6 g/dL (33-37); MCV 93.2 FL (81-99); MONO# 0.43 X1000 (0.11-0.59); MONO% 4.5 % (1.7-9.3); MPV 10.8 FL (7.4-10.4); NEUT# 8.56 X1000 (1.4-6.5); NEUT% 89.9 % (42.2-75.2); PLT 230 X1000 (130-400); RBC 4.82 XMIL (4.7-6.1); RDW 13.7 % (11.5-14.5); WBC 9.52 X1000 (4.8-10.8)
[2018-12-05] MEDS: ZOFRAN IV PRN (06:04)
[2018-12-05] MEDS: MORPHINE IV PRN ×5 (06:04→23:42)
[2018-12-05 06:05] LABS: INR 1.34; PROTIME 17.6 Seconds (11.0-16.0)
[2018-12-05 06:06] LABS: PTT 32.4 Seconds (22.3-41.8)
[2018-12-05 06:10] LABS: BANDS 2 % (0-1); LYMPHS 6 % (21-51); MONO 2 % (1-9); SEGS 90 % (42-75)
[2018-12-05 06:41] LABS: ALB/GLOB RATIO 1.5; ALBUMIN 3.7 g/dL (3.5-5.0); CALCIUM 8.7 mg/dL (8.8-10.2); CREATININE 1.3 mg/dL (0.7-1.2); MAGNESIUM 2.1 mg/dL (1.5-2.7); POTASSIUM 5.3 mmol/L (3.5-5.1); TOTAL BILIRUBIN 0.63 mg/dL (0.20-1.00); TOTAL PROTEIN 6.2 g/dL (6.3-8.3)
--- NOTE | 2018-12-05 08:45 | PROGRESS NOTE ---
DATE: 12/05/2018 SUBJECTIVE: This patient is resting comfortably in bed. He is still complaining of abdominal pain. He is still in atrial flutter but the rate is controlled Cardiology Department and Surgery Department on board. This patient is not passing gas. His ostomy bag is empty since yesterday. OBJECTIVE: Vital Signs: Temperature 98 degrees, pulse 76, respiratory rate 15, blood pressure 114/66, oxygen saturation 95% on room air. HEENT: Head normocephalic. No trauma. PERRLA. Neck: Supple. No JVD. No masses. Central trachea. Chest: Clear to auscultation. Some crepitus at the bases. Cardiovascular: Irregularly irregular rate and rhythm. Abdomen: Soft. Tenderness to palpation at the level of the periumbilical area and lower abdomen. Decreased bowel sounds. No signs of peritoneal irritation. He does have a left lower quadrant colostomy bag. Extremities: No edema, no clubbing, no cyanosis. Neurological: The patient is alert and oriented x3. No focal deficits. LABORATORY DATA: WBC 9.5, hemoglobin 15.1, hematocrit 44.9, platelets 230,000. Sodium 139, potassium 5.3, chloride 107, bicarbonate 21, BUN 26, creatinine 1.3, glucose 115, calcium 8.7. AST 24, ALT 24, alkaline phosphatase 115. ASSESSMENT AND PLAN: 1. High-grade small bowel obstruction. He is still not having any bowel movement and, as per the patient, he is not passing gas. Surgery Department following this patient. We will continue with the same management for now. 2. Atrial fibrillation/atrial flutter with rapid ventricular response. This patient has been evaluated by Cardiology Department. The rate has been controlled. We will continue with the same management for now. He had an episode of rapid ventricular response during the night but at this moment is better. 3. Aortic stenosis with a history of transaortic valve replacement. He should be on Plavix for at least 6 months. He just had the procedure performed on 10/20/[address] Miller in [facility]. Currently we will just keep this patient on DVT prophylaxis due to his small bowel obstruction and possible further surgery. 4. Benign prostatic hypertrophy. Continue with the same management. 5. Acute on chronic kidney disease. Kidney function seems to be better today compared with admission. We will continue with gentle fluid hydration. 6. Tobacco abuse. This patient has been highly advised against tobacco use. I will continue with daily cessation education. It looks like he does not want to quit smoking and he smokes close to a pack a day since the age of 19. 7. Deep vein thrombosis prophylaxis with heparin prophylactically, renally dosed. 8. Nutritional status. This patient is n.p.o. He has been getting IV fluids. I will add a little bit of Clinimix and I will monitor. cc: Pepe Hernandez MD
[2018-12-05] MEDS: HEPARIN SUBQ SCH ×2 (08:47→20:09)
[2018-12-05] MEDS: NS 1,000 ML IV SCH (08:48)
[2018-12-05] MEDS: CLINIMIX E 4.25%-5% SOLUTION 1,000 ML IV SCH (09:00)
--- NOTE | 2018-12-05 13:47 | GENERAL SURGERY PROGRESS NOTE ---
DATE: 12/05/2018 SUBJECTIVE: Improving NG output, seems to be decreasing. Unsure if he is having bowel function. OBJECTIVE: Abdomen is mildly distended. Incisions are intact. He has generalized slowing related to his Parkinson's which is improved to some degree. LABORATORY DATA: White count is 9, hematocrit 44. His creatinine is 1.3, is down from 1.5. His potassium is high at 5.3. Troponins are normal. ASSESSMENT AND PLAN: A 73-year-old gentleman with Parkinson's, status post laparoscopic cholecystectomy. He does have a bit of an ileus it seems. We will monitor the NG tube output and hopefully can remove this. Potassium is rising each day. Possibly related to his Clinimix, but we will monitor. Otherwise, I do not see that we are giving him any extraneous potassium. His MODE drain is serosanguineous. We will continue to monitor him closely in this complicated medical patient status post cholecystectomy. cc: Ana Choi MD MTDD
--- NOTE | 2018-12-05 14:31 | GENERAL SURGERY PROGRESS NOTE ---
DATE: 12/05/2018 SUBJECTIVE: NG tube is in place. His abdomen is soft. He has not had anything in the way of ostomy output. He has been hemodynamically stable. No fevers. No tachycardia. OBJECTIVE: Blood pressure 157/81. His abdomen is mildly distended, but soft. There is no pain. Ostomy bag is flat. White count was 9, hematocrit 44, creatinine is 1.3, potassium 5.3. ASSESSMENT AND PLAN: This is a 73-year-old gentleman status post abdominoperineal resection several years ago with recurrent bowel obstructions. We will monitor him closely going forward. cc: Ana Choi MD
--- NOTE | 2018-12-05 19:54 | PROGRESS NOTE ---
DATE: 12/05/2018 SUBJECTIVE: Patient continues without chest discomfort or dyspnea. He remains in atrial flutter with controlled rate. He continues on NG suction. OBJECTIVE: Vital Signs: Blood pressure 141/73, heart rate 76, with ECG monitor showing atrial flutter. Oxygen saturation 97% on room air. There is no significant jugular venous distention. Chest: Clear to auscultation. Cardiac: Reveals an irregular rate and rhythm without appreciable murmur or gallop. Extremities: Are without edema. LABORATORY DATA: Includes a white blood cell count of 9.52, hematocrit 44.9, hemoglobin 15.1, platelet count 230. Sodium 139, potassium 5.3, chloride 107, carbon dioxide 21, BUN 26, creatinine 1.3, glucose 115. IMPRESSION: 1. Small bowel obstruction, recurrent. 2. Paroxysmal atrial flutter. Patient currently in atrial flutter with controlled ventricular rate response. 3. Previous colon cancer. Patient is status post abdominoperineal resection. He has colostomy. 4. Mild coronary atherosclerosis. Patient continues without angina. 5. Aortic valve disorder with previous transaortic valve replacement for severe aortic stenosis. 6. Mild left ventricular diastolic dysfunction with left ventricular ejection fraction of 40-45%. No signs of congestive heart failure. RECOMMENDATIONS: Continue current strategy of rate control with intravenous Cardizem and intravenous digoxin supplemented with as needed parental beta-blockers. cc: Damon Fu MD
[2018-12-06] MEDS: CARDIZEM 125 MG/D5W 125 MG/125 ML IVPB IV SCH ×2 (00:01→22:43)
[2018-12-06] MEDS: CLINIMIX E 4.25%-5% SOLUTION 1,000 ML IV SCH ×3 (02:33→22:18)
[2018-12-06] MEDS: LOPRESSOR 10 MG in NS 50 ML IV SCH ×4 (02:35→21:11)
[2018-12-06] MEDS: NS 1,000 ML IV SCH ×2 (03:45→22:18)
[2018-12-06 05:51] LABS: BASO# 0.01 X1000 (0.0-0.2); BASO% 0.3 % (0.0-0.8); EOS# 0.02 X1000 (0.0-0.7); EOS% 0.5 % (0.0-10.0); HEMOGLOBIN 14.3 g/dL (14.0-18.0); LYMPH# 0.56 X1000 (1.2-3.4); LYMPH% 15.2 % (20.5-51.1); MCH 31.7 PG (27-31); MCV 93.1 FL (81-99); MONO# 0.59 X1000 (0.11-0.59); MPV 10.9 FL (7.4-10.4); NEUT# 2.51 X1000 (1.4-6.5); PLT 192 X1000 (130-400); RBC 4.51 XMIL (4.7-6.1); RDW 13.1 % (11.5-14.5); WBC 3.69 X1000 (4.8-10.8)
[2018-12-06 06:18] LABS: AGAP 9; BUN 31 mg/dL (8-22); CALCIUM 8.3 mg/dL (8.8-10.2); CHLORIDE 105 mmol/L (98-107); COSMO 279; CREATININE 1.1 mg/dL (0.7-1.2); ESTIMATED GFR > 60; GLUCOSE 115 mg/dL (70-104); POTASSIUM 4.7 mmol/L (3.5-5.1); SODIUM 136 mmol/L (136-145); TCO2 22 mmol/L (25-35)
--- NOTE | 2018-12-06 07:22 | Diag Imaging Result Doc PS360 ---
EXAM: ABDOMEN FLAT/UPRIGHT HISTORY: pain TECHNIQUE: Flat and upright, two views COMPARISON: 10/22/2018 FINDINGS: A nasogastric tube overlies the stomach. There are multiple air distended loops of small bowel. No organomegaly. IMPRESSION: Small bowel obstruction. Electronically signed by Ed Gil 12/06/2018 7:20 AM
--- NOTE | 2018-12-06 07:23 | Diag Imaging Result Doc PS360 ---
EXAM: CHEST-PORTABLE HISTORY: dyspnea TECHNIQUE: Chest single view COMPARISON: 12/04/2018 FINDINGS: The lungs are well expanded. The heart is not enlarged. The vessels are not distended. There are no infiltrates. No effusion identified. IMPRESSION: Negative exam. Electronically signed by Ed Gil 12/06/2018 7:21 AM
[2018-12-06] MEDS: HEPARIN SUBQ SCH ×2 (09:30→21:11)
[2018-12-06] MEDS: MORPHINE IV PRN ×3 (10:23→21:11)
--- NOTE | 2018-12-06 15:39 | PROGRESS NOTE ---
DATE: 12/06/2018 SUBJECTIVE: Patient is resting comfortably in bed. He does have an NG tube in place. OBJECTIVE: Vital Signs: Temperature 98.1 degrees, pulse is 77, respiratory rate 16, blood pressure 125/68, oxygen saturation is 97%. HEENT: Atraumatic, normocephalic. Cardiovascular System: S1, S2. Respiratory System: Has evidence of good air entry bilaterally. Abdomen: Soft. Nontender. Bowel sounds present. Has an ostomy in the left lower quadrant of the abdomen. Central Nervous System: No obvious focal deficit noted. Labs: WBC is 3.69, hematocrit is 42, with a platelet count of 192,000. Sodium is 136, potassium 4.9, chloride is 105, bicarb 22, BUN is 31, creatinine is 1.1. Abdominal x-ray shows evidence of a small bowel obstruction. ASSESSMENT AND PLAN: 1. Small bowel obstruction. Maintain patient nothing per oral. Continue nasogastric tube placement. The patient is being followed by the surgical team. 2. Atrial fibrillation with rapid ventricular rate. Heart rate is now controlled. Continue beta arianna as well as calcium channel arianna. No anticoagulation for now in anticipation of possible surgery. 3. History of aortic stenosis, status post transaortic valve replacement. Aware. Hold off on Plavix for now in light of possible surgery for small bowel obstruction. 4. Benign prostatic hypertrophy. Continue finasteride as well as Flomax. 5. Tobacco use history. Patient has been counseled about tobacco use. 6. Deep vein thrombosis prophylaxis. Heparin. 7. Nutritional status. Reason remains nothing per oral in light of a small bowel obstruction, and Clinimix added for nutritional supplementation. 8. Acute kidney injury, improved. Follow up on renal function. cc: Jayce Resendiz MD
--- NOTE | 2018-12-06 16:06 | GENERAL SURGERY PROGRESS NOTE ---
DATE: 12/06/2018 SUBJECTIVE: He feels better. He is voiding. NG tube remains with bilious output. EXAMINATION: Abdomen is soft. Ostomy without stool or gas in the bag. LABS: Reviewed his labs. White count 3, hematocrit 42. Creatinine is 1.1. ASSESSMENT AND PLAN: A 73-year-old male with a bowel obstruction, status post APR. We will continue nasogastric tube, decompression. We will encourage him to be out of bed and ambulating. cc: Ana Choi MD MTDD
[2018-12-07] MEDS: MORPHINE IV PRN (02:41)
[2018-12-07] MEDS: LOPRESSOR 10 MG in NS 50 ML IV SCH (04:05)
[2018-12-07 06:07] LABS: BASO# 0.01 X1000 (0.0-0.2); BASO% 0.3 % (0.0-0.8); EOS# 0.03 X1000 (0.0-0.7); EOS% 0.8 % (0.0-10.0); HEMATOCRIT 42.7 % (42.0-52.0); LYMPH# 0.49 X1000 (1.2-3.4); LYMPH% 13.8 % (20.5-51.1); MCH 32.6 PG (27-31); MCHC 35.1 g/dL (33-37); MCV 92.8 FL (81-99); MONO# 0.38 X1000 (0.11-0.59); MONO% 10.7 % (1.7-9.3); MPV 11.1 FL (7.4-10.4); NEUT# 2.63 X1000 (1.4-6.5); NEUT% 74.4 % (42.2-75.2); PLT 147 X1000 (130-400); RDW 13.1 % (11.5-14.5); WBC 3.54 X1000 (4.8-10.8)
--- NOTE | 2018-12-07 06:22 | GENERAL SURGERY PROGRESS NOTE ---
DATE: 12/07/2018 SUBJECTIVE: Patient seems to be doing okay. He has had air leak come out of his appliance. He has been feeling okay. No sickness to his stomach. OBJECTIVE: Vital Signs: Patient is currently afebrile. His vital signs stable. General: No acute distress. HEENT: Normocephalic, atraumatic. Pupils equal, round, reactive to light. Mucous membranes moist. Oropharynx benign. Neck: Supple trachea midline. Cardiovascular: Regular rate and rhythm. Lungs: Grossly clear. Abdomen: Soft, nondistended, air coming out of his appliance. Extremities: Moves all extremities. Neurologic: Grossly intact. Skin: No signs of jaundice. Vascular: All extremities perfused. LABORATORY: None this morning as of yet. ASSESSMENT PLAN: A 73-year-old gentleman status post abdominoperineal resection several years ago, now with a bowel obstruction. 1. Bowel obstruction. At this time it seems to be clinically improving. We will get rid of his nasogastric tube and start him on clear liquid diet. We will monitor him closely. Patient does want to go home. 2. Multiple medical comorbidities currently being managed by the hospitalist. cc: Andrew Farr MD
[2018-12-07 06:39] LABS: AGAP 9; BUN 26 mg/dL (8-22); CALCIUM 7.9 mg/dL (8.8-10.2); CHLORIDE 103 mmol/L (98-107); COSMO 278; ESTIMATED GFR > 60; GLUCOSE 96 mg/dL (70-104); POTASSIUM 4.3 mmol/L (3.5-5.1); SODIUM 137 mmol/L (136-145); TCO2 25 mmol/L (25-35)
--- NOTE | 2018-12-07 07:53 | EKG Report ---
Test Performed on : 12/07/2018 07:45:29 AM Test Reason : rhythm change Blood Pressure : / mmHG Vent. Rate : 063 BPM Atrial Rate : 063 BPM P-R Int : 182 ms QRS Dur : 172 ms QT Int : 448 ms P-R-T Axes : 064 -46 140 degrees QTc Int : 458 ms Normal sinus rhythm. Left axis deviation Left bundle branch block Abnormal ECG When compared with ECG of 06-DEC-2018 14:12, (Unconfirmed) Sinus rhythm. has replaced Atrial flutter. Confirmed by Devang VLILEDA, Bridger ([id number]) on 12/07/2018 9:21:49 AM
--- NOTE | 2018-12-07 07:59 | EKG Report ---
Test Performed on : 12/06/2018 2:12:25 PM Test Reason : rhythm confirmation Blood Pressure : / mmHG Vent. Rate : 078 BPM Atrial Rate : 312 BPM P-R Int : 000 ms QRS Dur : 166 ms QT Int : 408 ms P-R-T Axes : 069 -49 122 degrees QTc Int : 465 ms Atrial flutter. with 4:1 AV conduction. Left axis deviation Left bundle branch block Abnormal ECG When compared with ECG of 05-DEC-2018 06:51, (Unconfirmed) No significant change was found Confirmed by Devang VILLEDA, Bridger ([id number]) on 12/07/2018 9:19:20 AM
--- NOTE | 2018-12-07 09:13 | EKG Report ---
Test Performed on : 12/04/2018 2:29:21 PM Test Reason : CIC. No order in [place] Blood Pressure : / mmHG Vent. Rate : 135 BPM Atrial Rate : 131 BPM P-R Int : 000 ms QRS Dur : 166 ms QT Int : 400 ms P-R-T Axes : 000 -54 127 degrees QTc Int : 600 ms Wide QRS tachycardia. Left axis deviation Left bundle branch block Abnormal ECG When compared with ECG of 04-DEC-2018 14:28, (Unconfirmed) Wide QRS tachycardia. has replaced Atrial flutter. Vent. rate has increased BY 68 BPM Confirmed by Devang VILLEDA, Bridger ([id number]) on 12/07/2018 9:14:35 AM
[2018-12-07] MEDS: HEPARIN SUBQ SCH ×2 (09:18→20:30)
[2018-12-07] MEDS: CARDIZEM PO SCH ×2 (09:18→17:51)
--- NOTE | 2018-12-07 12:37 | PROGRESS NOTE ---
DATE: 12/07/2018 SUBJECTIVE: The patient resting comfortable in bed. NG tube has been discontinued. OBJECTIVE: Vital signs: Temperature is 97.7 degrees, pulse 64, respiratory pulse is 64, respirations 18, blood pressure is 125/54, oxygen saturation is 97%. HEENT: Atraumatic, normocephalic. Cardiovascular: S1, S2. Respiratory: Has evidence of good air entry bilaterally. Abdomen: Soft, nontender. No masses felt. Bowel sounds absent. Extremities: No evidence of significant edema. Central nervous system: No obvious focal deficit noted. LABORATORY DATA: WBC is 3.54, hematocrit 42.7, with a platelet count of 147,000. Sodium is 137, potassium 4.3, chloride is 103, bicarb 25, BUN is 26, creatinine is 1.0. ASSESSMENT AND PLAN: 1. Small bowel obstruction. NG tube has been discontinued. The patient placed on clear liquids. We will continue to follow the patient's clinical progression with the surgical team. 2. Atrial fibrillation with rapid ventricular rate. Current heart rate is controlled. We will continue patient on beta-arianna as well as calcium channel arianna. No anticoagulation at this time in light of consideration for possible surgery. At this time it seems like surgery is actually much less likely. 3. History of aortic stenosis status post transaortic valve replacement. Aware. 4. Benign prostatic hypertrophy. Continue finasteride as well as Flomax. 5. Tobacco use history. The patient counseled on tobacco cessation. 6. Deep vein thrombosis prophylaxis. Heparin. 7. Nutritional status. Continue Clinimix for now. Once patient is able to take solids without any problems we can discontinue Clinimix at that point. 8. Acute kidney injury. Improved follow up on renal function. 9. Hypokalemia. Replace potassium level. cc: Jayce Resendiz MD
[2018-12-07] MEDS: CLINIMIX E 4.25%-5% SOLUTION 1,000 ML IV SCH (18:12)
[2018-12-07] MEDS: NS 1,000 ML IV SCH (18:12)
[2018-12-07] MEDS: CORDARONE PO SCH (20:30)
[2018-12-08] MEDS: CARDIZEM PO SCH ×2 (00:22→08:02)
--- NOTE | 2018-12-08 06:46 | GENERAL SURGERY PROGRESS NOTE ---
DATE: 12/08/2018 SUBJECTIVE: Patient seems to be doing okay. He has had ostomy output. He is not sick to his stomach. He is tolerating his NG tube being removed. He tolerated his clear liquids. OBJECTIVE: Vital Signs: Patient is currently afebrile. His vital signs are stable. General: No acute distress. HEENT: Normocephalic, atraumatic. Pupils equal, round, reactive to light. Mucous membranes moist. Oropharynx benign. Neck: Supple, trachea midline. Cardiovascular: Somewhat irregular. Lungs: Grossly clear. Abdomen: Soft, nondistended. Stool in his appliance. Nontender. Extremities: Moves all extremities. Neurologic: Grossly intact. Skin: No signs of jaundice. Vascular: All extremities perfused. LABORATORY: Reviewed from yesterday. Labs from this morning still pending. ASSESSMENT AND PLAN: A 73-year-old status post abdominoperineal resection several years ago now with bowel obstruction. 1. Bowel obstruction. At this time I think it is clinically resolved. We will put him on a regular diet and see how he does. 2. Atrial fibrillation with RVR and possible atrial flutter. At this time defer to the hospitalist. 3. Multiple medical comorbidities currently being managed by the hospitalist service. cc: Andrew Farr MD
[2018-12-08 07:23] VITALS: BP 132/71
[2018-12-08] MEDS: CORDARONE PO SCH (08:02)
[2018-12-08] MEDS: HEPARIN SUBQ SCH (08:02)
--- NOTE | 2018-12-08 19:06 | DISCHARGE SUMMARY ---
ADMISSION DATE: 12/04/2018 DISCHARGE DATE: 12/08/2018 DIAGNOSES: 1. Small-bowel obstruction resolved. 2. Chronic atrial fibrillation with rapid ventricular rate, rate is now controlled. The patient on chronic anticoagulation. 3. History of aortic stenosis status post transaortic valve replacement. 4. Benign prostatic hypertrophy. 5. Tobacco use. 6. Acute kidney injury resolved. CONSULTATIONS: 1. Dr. Kamlesh Farr, general surgery. 2. Dr. Jewel Euceda, Cardiology. MICROBIOLOGY: Blood cultures revealed no growth after 48 hours. DIAGNOSTICS: CT of the abdomen and pelvis on 12/04/2018 revealed high-grade mechanical small bowel obstruction with a transition point in the right lower quadrant where there is mesenteric swirling, consider an obstructing adhesion or internal hernia. Chest x-ray 12/04/2018 revealed no acute disease. NG tube is in good position. Stable mild cardiomegaly, stable apparent aortic valve replacement. No infiltrates or edema. 12/06/2018 abdominal x-ray revealed small bowel obstruction. Chest x-ray 12/06/2018 revealed negative exam. HOSPITAL COURSE: Mr. Carr presented to the emergency room complaining of abdominal pain, nausea and vomiting. He was found to have a high-grade small bowel obstruction. NG tube was placed. Dr. Kamlesh Farr was consulted in surgery, he followed. Thankfully this did resolve without the need of surgery. He is tolerating regular diet without any abdominal pain, nausea, vomiting. He does have a history of chronic atrial fibrillation and was in atrial fibrillation, RVR on admission, he was evaluated by Cardiology. He was placed in the unit with IV Cardizem is given IV digitalis. Medications were adjusted and since rates have been in the 60s to 70s. On admission he was noted to have a creatinine 1.9, with gentle hydration creatinine is down to 1, thankfully he has improved and he is ready for discharge. DISCHARGE PHYSICAL EXAM: Vital Signs: Blood pressure is 132/71, heart rate of 64, respirations 13, temperature is 98 degrees with room air saturations 97-99. HEENT: Head is normocephalic, atraumatic. Mucous membranes are moist. Neck: Supple. Trachea midline. Cardiovascular: Irregularly irregular rate and rhythm. S1 and S2 appreciated. He has no lower extremity edema. Calves are nontender with peripheral pulses palpable x4 extremities. Pulmonary: Breath sounds are clear. Chest rises and falls symmetric with respiration. Chest wall is nontender to palpation. Gastrointestinal: Abdomen soft, nontender, nondistended with bowel sounds in all 4 quadrants. Stoma is noted to the left lower quadrant with stoma pink. Neurologic: He is alert and oriented. Skin: Warm and dry. DISCHARGE MEDICATIONS: Finasteride 5 mg p.o. at bedtime, Lipitor 40 mg p.o. at bedtime, Plavix 75 mg p.o. q.a.m., Cardizem 60 mg p.o. q.8 hours, Colace 200 mg p.o. b.i.d., multivitamin daily, Xarelto 20 mg p.o. daily, Flomax 0.4 p.o. daily, amiodarone 200 mg p.o. daily, aspirin 81 mg p.o. daily. FOLLOWUP: 1. He is to follow up his primary care provider, Dr. Sendy Knight in the next 1 to 2 weeks. 2. His seed analyst this week, he needs to call and make an appointment. He has been instructed to call to be seen sooner, return to the ER for recurring abdominal pain, nausea, vomiting, any diarrhea, constipation or any obstipation, black or bloody vomitus or stools, any syncope, dizziness, chest pain, palpitations, shortness of breath, cough, fever, chills, temperature greater than 101, any hematuria, dysuria, frequency, urgency or for any questions or concerns that he may have. He is being discharged home in stable condition with family members. TIME SPENT: Greater than 30 minutes. Dictated by RUBY Rangel for Pepe Hernandez MD cc: RUBY Rangel MD
== END 2018-12-08 10:15 | disposition home or self-care (01) | DRG 309 ==
LOC: ED 03:41 → SUATTDRO 08:10 → EDIPHOLD 08:10 → 3S 13:21
PROVIDERS: ATTEND Internal Medicine
CPT/HCPCS: 71010; 71020; 71045; 71046; 74019; 74020; 74177; 80048; 80053; 81001; 82550; 83036; 83605; 83690; 83735; 83880; 84100; 84439; 84443; 84484; 85025; 85610; 85730; 87040; 93005; 93010; 94640; 94761; 94799; 96361; 96365; 96366; 96372; 96375; 96376; 97163; 97530; 99285; A9270; J0500; J1160; J1644; J2060; J2270; J2405; J7030; Q9967